=== PATIENT | male | born 1945 | race Caucasian/White ===

== ENCOUNTER 2019-04-03 13:07 | Inpatient (IN) | payer MEDICARE, OTHER ==
[~2019-04-03] VITALS: Ht 180.3 cm; Wt 83.8 kg
[2019-04-03 13:51] LABS: BASOPHILS ABSOLUTE AUTO 0.03 K/mm3 (0.00-0.23); BASOPHILS PERCENT AUTO 0 % (0-2); EOSINOPHILS ABSOLUTE AUTO 0.03 K/mm3 (0.00-0.68); EOSINOPHILS PERCENT AUTO 0 % (0-6); Hematocrit 42.6 % (37.0-53.0); Hemoglobin 14.2 g/dL (13.5-17.5); IMMATURE GRAN ABSOLUTE AUTO 0.04 K/mm3 (0.00-0.10); IMMATURE GRAN PERCENT AUTO 0 % (0-1); LYMPHOCYTES PERCENT AUTO 8 % (21-46); MONOCYTES ABSOLUTE AUTO 0.63 K/mm3 (0.16-1.47); MONOCYTES PERCENT AUTO 6 % (4-13); Mean Corpuscular HGB 30.3 pg (26.0-34.0); Mean Corpuscular HGB Conc 33.3 g/dL (31.5-36.5); Mean Corpuscular Volume 91 fL (80-100); Mean Platelet Volume 9.3 fL (9.1-12.4); NEUTROPHILS ABSOLUTE AUTO 8.65 K/mm3 (1.96-9.15); NEUTROPHILS PERCENT AUTO 85 % (41-73); Platelet Count 202 K/mm3 (150-400); RDW Coefficient Variation 13.1 % (11.7-14.2); RDW Standard Deviation 43.9 fL (35.1-46.3); Red Blood Cell Count 4.69 M/mm3 (4.30-5.90); White Blood Cell Count 10.18 K/mm3 (4.00-11.30)
[2019-04-03 14:13] LABS: Alanine Aminotransfer (ALT/SGP 25 U/L (12-78); Albumin, Blood 3.8 g/dL (3.4-5.0); Albumin/Globulin Ratio 1.2 (0.8-1.8); Alk Phos 71 U/L (50-136); Anion Gap 8 mmol/L (6-16); Aspartate Aminotrans (AST/SGOT 20 U/L (12-37); Bilirubin, Total 0.5 mg/dL (0.1-1.0); Blood Urea Nitrogen 18 mg/dL (8-24); Bun/Creatinine Ratio 18.5 (12.0-20.0); CO2, Blood 23 mmol/L (21-32); Chloride, Blood 108 mmol/L (98-108); Creatinine, Blood 0.97 mg/dL (0.60-1.20); Globulin, Blood 3.1 g/dL (2.2-4.0); Glomerular Filtration Rate >60 (60-); Glucose, Blood 146 mg/dL (70-99); Potassium, Blood 3.9 mmol/L (3.5-5.5); Sodium, Blood 139 mmol/L (136-145); Total Protein, Blood 6.9 g/dL (6.4-8.2)
[2019-04-03 14:27] LABS: Troponin I 0.551 ng/mL (0.000-0.040)
--- NOTE | 2019-04-03 15:43 | NUR ---
I am call to the ED by Justin to come and sit with patient's spouse because patient has coded in rm 12. I arrive in ED and spouse, Jacinta, is in the consult room making phone calls and RN Jovanna is present with her. I walk with patient as she tells me the events of the morning and then the events that occurred in the ED. Jacinta is tearful at times and yet very articulate and focused in telling details and talking with doctors and nurses. 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 I sit with patient providing a calming presence while I listen empathically. I provide prayer when patient codes a second time and again pulls out of it. Jacinta is very relieved. Jacinta kisses her on the way to the Library Circulation Department Chief and I go and retrieve Jacinta's friends from the ED waiting room and bring them to her in the [facility] waiting room. Jacinta thanks me for all the support and assures me that there is nothing more I can do for her at this time. I will continue to remain available to patient and family.
[2019-04-03] MEDS ORDERED: LISI20 PO (16:35)
[2019-04-03] MEDS ORDERED: Aciphex20 MG PO (16:36)
--- NOTE | 2019-04-03 18:00 | NUR ---
PT ADMITTED TO ICU FROM MOLDER HELPER IN BED. SEDATED WITH PROPOFOL, MOVING EXTREMITIES SPONTANEOUSLY, NO RESPONSE TO COMMANDS. PERRL. WRIST RESTRAINTS ON TO PROTECT TUBE. LUNGS CLEAR. ORALLY INTUBATED, VENT SETTING AC 15, TV 450, PEEP 8, 100%. 7.0 AT 25 ATT. LUNGS CLEAR. OGT CLAMPED. ABDOMEN SOFT. CARDIAC-TEMPORARY PACER RIGHT FEMORAL SITE. AGGRASTAT AT 15CC/HR=.147 MCG/KG/MIN VIA LAC SL, INITIAL RHYTHM PACED THEN CHANGED TO WIDE COMPLEX TACHYCARDIA. BOTH DR. BUTTS AND DR. MCQUEEN AT BEDSIDE. ADENOSINE GIVEN-INITIAL 6 MG NO RESPONSE VIA RAC SL. SECOND DOSE 12 MG VIA CORDIS WITH SLOWING RATE THEN QUICKLY BACK TO TACHYCARDIA AT 120'S, REPEATED AND SAME RESULT. DR. MCQUEEN IDENTIFIED RHYTHM SVT. AMIODARONE GTT STARTED AT 1 MG/MIN-NO BOLUS (HAD IN ER) MAINTAINING BP. RIGHT RADIAL TR BAND INTACT WITH 12 CC AIR, RIGHT HAND DUSKY, COOL, SLIGHT SWELLING ABOVE SITE-NO CHANGE FROM REPORT FROM MOLDER HELPER STAFF. UO VIA RODRÍGUEZ ADEQUATE. PEDAL PULSES INTACT.
[2019-04-03 18:48] LABS: BASOPHILS ABSOLUTE AUTO 0.05 K/mm3 (0.00-0.23); BASOPHILS PERCENT AUTO 0 % (0-2); EOSINOPHILS ABSOLUTE AUTO 0.01 K/mm3 (0.00-0.68); EOSINOPHILS PERCENT AUTO 0 % (0-6); Hematocrit 48.5 % (37.0-53.0); Hemoglobin 15.2 g/dL (13.5-17.5); IMMATURE GRAN ABSOLUTE AUTO 0.16 K/mm3 (0.00-0.10); IMMATURE GRAN PERCENT AUTO 1 % (0-1); LYMPHOCYTES ABSOLUTE AUTO 1.55 K/mm3 (0.84-5.20); LYMPHOCYTES PERCENT AUTO 6 % (21-46); MONOCYTES ABSOLUTE AUTO 1.67 K/mm3 (0.16-1.47); MONOCYTES PERCENT AUTO 7 % (4-13); Mean Corpuscular HGB 30.5 pg (26.0-34.0); Mean Corpuscular HGB Conc 31.3 g/dL (31.5-36.5); Mean Platelet Volume 9.3 fL (9.1-12.4); NEUTROPHILS ABSOLUTE AUTO 22.21 K/mm3 (1.96-9.15); NEUTROPHILS PERCENT AUTO 87 % (41-73); Platelet Count 260 K/mm3 (150-400); RDW Coefficient Variation 13.2 % (11.7-14.2); RDW Standard Deviation 47.6 fL (35.1-46.3); Red Blood Cell Count 4.99 M/mm3 (4.30-5.90); White Blood Cell Count 25.65 K/mm3 (4.00-11.30)
[2019-04-03 18:49] LABS: Mean Corpuscular Volume 97 fL (80-100)
--- NOTE | 2019-04-03 19:15 | NUR ---
ASSUMED CARE BEDSIDE REPORT RECIEVED FROM BRONWYN BOSWELL. DR MCQUEEN IN ROOM AT THIS TIME ATTEMPTING TO PLACE RADIAL ART LINE. DR BUTTS IN ROOM WELL. PT IS CURRENTLY ON VENT, AC 16, TV 550, PEEP 8, FIO2 100%. PT WITH TRANSVENOUS PACER IN PLACE TO RIGHT GROIN SET AT 80 BPM, 1.5 MV. PT HR INCREASED BACK TO 130'S WIDE COMPLEX. AMIO GTT RESTARTED AT 1 MG/MIN. AFTER UNSUCCESSFUL RADIAL ART LINE ATTEMPT, DR BUTTS STARTED SET UP FOR LEFT FEMORAL CENTRAL LINE AND ART LINE. SUCCESSFUL PLACEMENT OF ART LINE AND CENTRAL LINE ACHIEVED. SEE VS FLOW SHEET FOR ART LINE BP'S. DOPAMINE AT 20 MCG/MIN. LEVOPHED AT 5 MCG/MIN. PT IS RESTLESS/THRASHING IN BED AT THIS TIME. PROPOFOL RESTARTED AT 40 MCG/KG/MIN. SBW RESTRAINTS IN PLACE. PT WITH TR BAND TO RIGHT RADIAL ACCESS SITE, SEE CATH SITE MANAGEMENT DOCUMENTATION. OGT IN PLACE, CLAMPED. RODRÍGUEZ IN PLACE WITH GOOD AMOUNT OF YELLOW OUTPUT NOTED. FAMILY IN WAITING ROOM AT THIS TIME. WILL CONTINUE TO MONITOR.
--- NOTE | 2019-04-03 19:15 | NUR ---
RHYTHM CHANGE TO CHB, PACED AT RATE 60-HYPOTENSIVE WITH PRESSURE SYSTOLIC 50'S. DR. MCQUEEN REMAINS AT BEDSIDE. INCREASED TEMP PACER RATE TO 80 BPM WITHOUT IMPROVEMENT. NS BOLUS AT 999, DOPAMINE GTT INITIATED AND TITRATED UP TO 20 MCG/KG/MIN, AND THEN LEVOPHED STARTED AND UP TO 5 MCG/MIN. MAP NOW > 60. PROPOFOL OFF FOR HYPOTENSIVE EPISODE, AMIODARONE OFF. PT RESTLESS, AGITATED, RX WITH VERSED AND THEN ATIVAN AND PROPOFOL RESTARTED PER ORDERS. DR. MONTEIRO ATTEMPTING RADIAL [place] ACCESS FOR BP. ETT CUFF WITH AIR LEAK, PCXR DONE-CHANGED TO 27 ATT WITH RESOLUTION OF LEAK. 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 UPDATED AND BACK TO WAITING ROOM. AWAITING LABS. LEFT ARM SKIN TEAR. BLADDER TEMP MONITORED. UNSTABLE TO START COOLING MEASURES.
[2019-04-03 19:16] LABS: Anion Gap 15 mmol/L (6-16); Blood Urea Nitrogen 19 mg/dL (8-24); Bun/Creatinine Ratio 19.5 (12.0-20.0); CO2, Blood 17 mmol/L (21-32); Calcium, Blood 8.8 mg/dL (8.5-10.1); Chloride, Blood 108 mmol/L (98-108); Creatinine, Blood 0.98 mg/dL (0.60-1.20); Glomerular Filtration Rate >60 (60-); Glucose, Blood 226 mg/dL (70-99); Magnesium, Blood 2.2 mg/dL (1.6-2.4); Phosphorus, Blood 3.5 mg/dL (2.5-4.9); Potassium, Blood 3.9 mmol/L (3.5-5.5); Sodium, Blood 140 mmol/L (136-145)
[2019-04-03 20:08] LABS: PCO2 Arterial 39.6 mmHg (35-45); PO2 Arterial 71.4 mmHg (80-100); pH Blood Arterial 7.16 (7.35-7.45)
--- NOTE | 2019-04-03 23:00 | NUR ---
UPDATE PT WITH CONTINUED BREATH STACKING ON VENT. VENT SETTINGS CHANGED TO PC 10, PEEP 12, FIO2 95%. PT TOLERATING VENT WELL AFTER CHANGES. DR BUTTS CALLED AND UPDATED TO CURRENT PT CONDITION. NO NEW ORDERS RECIEVED AT THIS TIME. PT BP HAS STABILIZED WITH SBP 90-110'S, MAP 70-80'S. LEVOPHED AT 20 MCG/MIN. DOPAMINE BEING TITRATED DOWN FIRST PER DR MCQUEEN. HR REMAINS 130'S. PT APPEARS TO BE RESTING QUIETLY AT THIS TIME. FAMILY MEMBERS AND SPOUSE HAVE BEEN IN ROOM AND UPDATED. STATED THEY WILL SPEND THE NIGHT IN THE ICU WAITING ROOM. WILL CONTINUE TO MONITOR.
[2019-04-04 03:50] LABS: BASOPHILS ABSOLUTE AUTO 0.02 K/mm3 (0.00-0.23); BASOPHILS PERCENT AUTO 0 % (0-2); EOSINOPHILS PERCENT AUTO 0 % (0-6); Hematocrit 39.4 % (37.0-53.0); IMMATURE GRAN ABSOLUTE AUTO 0.07 K/mm3 (0.00-0.10); IMMATURE GRAN PERCENT AUTO 0 % (0-1); LYMPHOCYTES PERCENT AUTO 4 % (21-46); MONOCYTES ABSOLUTE AUTO 1.84 K/mm3 (0.16-1.47); MONOCYTES PERCENT AUTO 10 % (4-13); Mean Corpuscular HGB 30.2 pg (26.0-34.0); Mean Corpuscular Volume 92 fL (80-100); Mean Platelet Volume 9.3 fL (9.1-12.4); NEUTROPHILS ABSOLUTE AUTO 15.29 K/mm3 (1.96-9.15); NEUTROPHILS PERCENT AUTO 85 % (41-73); Platelet Count 226 K/mm3 (150-400); RDW Coefficient Variation 13.3 % (11.7-14.2); RDW Standard Deviation 44.7 fL (35.1-46.3); White Blood Cell Count 18.02 K/mm3 (4.00-11.30)
[2019-04-04 04:12] LABS: Alanine Aminotransfer (ALT/SGP 161 U/L (12-78); Albumin/Globulin Ratio 1.2 (0.8-1.8); Alk Phos 60 U/L (50-136); Anion Gap 8 mmol/L (6-16); Aspartate Aminotrans (AST/SGOT 418 U/L (12-37); Bilirubin, Total 0.5 mg/dL (0.1-1.0); Blood Urea Nitrogen 19 mg/dL (8-24); Bun/Creatinine Ratio 15.4 (12.0-20.0); CO2, Blood 22 mmol/L (21-32); Calcium, Blood 8.6 mg/dL (8.5-10.1); Chloride, Blood 106 mmol/L (98-108); Creatinine, Blood 1.23 mg/dL (0.60-1.20); Globulin, Blood 2.5 g/dL (2.2-4.0); Glomerular Filtration Rate >60 (60-); Glucose, Blood 298 mg/dL (70-99); Magnesium, Blood 1.6 mg/dL (1.6-2.4); Phosphorus, Blood 1.2 mg/dL (2.5-4.9); Potassium, Blood 3.7 mmol/L (3.5-5.5); Sodium, Blood 136 mmol/L (136-145); Total Protein, Blood 5.5 g/dL (6.4-8.2)
[2019-04-04 04:43] LABS: PCO2 Arterial 36.6 mmHg (35-45); PO2 Arterial 92.9 mmHg (80-100); pH Blood Arterial 7.37 (7.35-7.45)
--- NOTE | 2019-04-04 05:40 | NUR ---
SHIFT SUMMARY PT HAS REMAINED STABLE THROUGHOUT THE NIGHT. PT HAS TOLERATED THE VENT ON PRESSURE CONTROL OF 10 AND PEEP OF 10 WELL. FIO2 TITRATED DOWN TO 40%. PT HAS REMAINED SEDATED WITH PROPOFOL AT 40 MCG/KG/MIN. PT REMAINS WITH ART LINE AND CENTRAL LINE IN PLACE TO LEFT GROIN. BLEEDING FROM ART LINE SITE HAS SUBSIDED AND NEW DRESSING PLACED. BP HAS REMAINED STABLE WITH LEVOPHED AT 20 MCG/MIN. DOPAMINE HAS BEEN TITRATED DOWN THROUHGOUT THE SHIFT TO 3 MCG/KG/MIN. BICARB INFUSING AT 100 ML/HR, AMIO AT 0.5 MG/MIN, AGGRASTAT AT 15 ML/HR, AND NS TKO. TRANSVENOUS PACER REMAINS IN PLACE TO RIGHT GROIN, SET AT 80 BPM AND 3 MA. PT HR HAS TRENDED DOWN FROM 130'S TO 100'S. OGT REMAINS IN PLACE. RODRÍGUEZ TEMP PROBE REMAINS IN PLACE WITH GOOD URINE OUTPUT THIS SHIFT. SBW RESTRAINTS REMAIN IN PLACE. TR BAND REMOVED AND OPSITE DRESSING IN PLACE TO RIGHT RADIAL SITE. HEMATOMA HAS DISSAPATED AND SITE IS SOFT. PT SPOUSE HAS REMAINED AT BEDSIDE. WILL CONTINUE TO MONITOR AND REPORT OFF TO ONCOMING RN.
--- NOTE | 2019-04-04 07:30 | NUR ---
ASSUMED CARE: REPORT RECEIVED FROM BHASKAR Hernandez, RN & SHERI Kitchen RN. ASSUMED CARE OF THIS PT AT APPROX 0700. ON ASSESSMENT, THE PT IS SEDATED/ INTUBATED & RESTING QUIETLY. PT's IS AT BEDSIDE. VENT SETTINGS: PRESSURE CONTROL 10, PEEP 10, RR 16 & FIO2 35%. O2 SATS > 92%, RESP E/U. MONITOR SHOWS ST W/ HR 110s, BP STABLE W/ LEVOPHED & DOPAMINE TITRATION DOCUMENTED IN FLOWSHEET. AMIO INFUSING AT 0.5 MG/MIN, AGGRASTAT INFUSING AT 15 ML/HR. PROPOFOL FOR SEDATION. OGT CLAMPED. TEMP RODRÍGUEZ PATENT/ DRAINING DARK YELLOW URINE. R RADIAL SITE S/P ANGIOGRAM, TEGADERM DRESSING CDI. MOD AMNT BRUISING NOTED PROXIMAL TO PUNCTURE SITE. WRIST IMMOBILIZER IN PLACE. L RADIAL SITE S/P ATTEMPTED ART LINE PLACEMENT, GAUZE & COBAN TO AFFECTED AREA, CDI. R FEMORAL SITE W/ TV PACER IN PLACE. AREA WNL. TV PACER SETTINGS: VOLTAGE 3, SENSITIVITY 1.5 MV, RATE 80 P/MIN. L FEMORAL SITE W/ ARTERIAL LINE & CENTRAL LINE. AREA WNL. SMALL AMNT SS OOZING NOTED UNDER DRESSING, UNCHANGED PER REPORT. ALL DISTAL LIMBS/ DIGITS W/ STRONG PULSES & CAP REFILL < 3 SECONDS. WILL CONTINUE TO MONITOR & UPDATE NEEDED.
--- NOTE | 2019-04-04 08:05 | NUR ---
DR BOGGS: PROVIDER AT BEDSIDE TO SEE PT. NO CHANGES AT THIS TIME. CONTINUE POC PER LEADER ASSEMBLER & CLOTHING PATTERNMAKER. WILL CONTINUE TO MONITOR & UPDATE NEEDED.
--- NOTE | 2019-04-04 08:10 | NUR ---
DR MCQUEEN ([place]): PROVIDER AT BEDSIDE TO SEE PT. STS TO TITRATE PRESSORS TO KEEP MAP > 60. REQUESTS FOR EKG TO BE COMPLETED & FOR MORNING DOSE OF LIPITOR TO BE GIVEN, THEN FOR MED TO BE RESCHEDULED FOR BEDTIME, OKAY TO GIVE TWO DOSES TODAY. CONTINUE AMIODARONE UNTIL PO ORDERED BY PROVIDER. WILL CONTINUE TO MONITOR & UPDATE NEEDED.
--- NOTE | 2019-04-04 10:54 | NUR ---
AGGRASTAT: INFUSION COMPLETED AT 0800.
--- NOTE | 2019-04-04 11:16 | NUR ---
DR HAGEN: PROVIDER AT BEDSIDE TO SEE PT. SHE STS PT HAS DEVELOPED NEW INFILTRATE NOTED ON CHEST XR THIS AM, THERE IS CONCERN THAT ASPIRATION OCCURED DURING PT's CARDIAC ARREST. SHE WOULD LIKE TO BE NOTIFIED IF THE PT DEVELOPS A FEVER AT WHICH TIME, ABX WILL BE STARTED. SCD's TO BE PLACED ON BILAT CALVES FOR VTE PROPHYLAXIS. OTHERWISE CONTINUE CURRENT POC. WILL CONTINUE TO MONITOR & UPDATE NEEDED.
--- NOTE | 2019-04-04 13:28 | NUR ---
TUBE FEEDING: PER ASSOCIATE TECHNICIAN ORDERS, TF HAS BEEN INITIATED. VITAL HP INFUSING AT 15 ML/HR, OKAY TO ADVANCE TO 35 ML/HR AT APPROX 2130 TONIGHT IF PT TOLERATING WELL. 30 ML H2O FLUSH Q4H. RESIDUAL PRIOR TO TF INITIATION WAS 0 ML. WILL CONTINUE TO MONITOR & UPDATE NEEDED.
[2019-04-04 16:28] LABS: PCO2 Arterial 35.2 mmHg (35-45); PO2 Arterial 105 mmHg (80-100); pH Blood Arterial 7.49 (7.35-7.45)
--- NOTE | 2019-04-04 16:52 | NUR ---
DR HAGEN / UPDATE: PROVIDER UPDATED ON ABG RESULTS. STS TO D/C SODIUM BICARB. ALSO NOTIFIED HER OF PT's INCREASED CORE TEMP TO 99.7. STS SHE WILL PLACE ORDERS FOR ABX. WILL CONTINUE TO MONITOR & UPDATE NEEDED.
--- NOTE | 2019-04-04 17:15 | NUR ---
Patient's spouse, Britton, is bedside. Jennifer Madden tells me about the events since I was with her in the ED yesterday and about how she is holding up. She talks about no sleep for 36 hrs, about the large amount of family flying and driving from several parts of the [place] and about some of the interesting family unit complications. We talk about healthy margins, self-care and being in this for the long haul. I listen empathically and provide pastoral counselling psychologist and prayer. Jennifer Madden responds well and tells me she is going to lie down on the couch and try to get alittle rest before a big family dinner this night at 1900. I will continue to be available to patient and family.
--- NOTE | 2019-04-04 17:46 | NUR ---
SHIFT SUMMARY: NO ACUTE CHANGES SINCE PRIOR UPDATES. PT REMAINS SEDATED/ INTUBATED. BILAT SOFT WRIST RESTRAINTS IN PLACE TO PREVENT SELF-EXTUBATION. PT WITHDRAWING ALL EXTREMITIES TO PAINFUL STIMULI, MOVING BLE MORE THAN BUE. TMAX 99.7, DR HAGEN HAS STARTED IV ABX. LS ARE DIM IN BASES, VENT SETTINGS: PRESSURE CONTROL 10, PEEP 5, FIO2 35% & RR 16. PT TOLERATING WELL W/ RESP E/U, O2 SATS > 92%. MONITOR SHOWS ST W/ BBB, HR 100-110s. BP STABLE W/ LEVOPHED TITRATED PER FLOWSHEET. GOAL OF MAP > 60. HYPOACTIVE BT x4. PT TOLERATING TF WELL W/ NO RESIDUAL NOTED. RODRÍGUEZ DRAINING YELLOW URINE W/ SMALL AMNT SEDIMENT NOTED. DR HAGEN AWARE OF PT's LARGE AMNT OF URINE OUTPUT THIS SHIFT & HAS ORDERED POTASSIUM LEVEL TO BE CHECKED. BUE SITES WNL, WRIST IMMOBILIZER TO R SIDE, COBAN REMOVED FROM L SIDE. BLE SITES WNL, ALL LINES PATENT & DRESSINGS CDI. SEE WOUND DOCUMENTATION OR PRIOR NOTE FOR MORE DETAIL REGARDING THESE SITES. WILL CONTINUE TO MONITOR & REPORT OFF TO ONCOMING RN.
--- NOTE | 2019-04-04 19:00 | NUR ---
ASSUMED CARE ASSUMED CARE OF PATIENT. REMAINS INTUBATED- AC 16, PC 10, PEEP 5, FIO2 35%. RESP RATE 16-17. SEDATED WITH PROPOFOL @ 40MCG/KG/MIN. MOVES ALL EXTREMITIES WEAKLY AND WITHDRAWS FROM STIMILU. NOT FOLLOWING ANY COMMANDS AT THIS TIME. BILATERAL SOFT WRIST RESTRAINTS IN PLACE TO PREVENT SELF-EXTUBATION. RIGHT PUPIL 3MM, BRISK. LEFT PUPIL 2MM, BRISK. MONITOR SHOWS ST WITH BBB, RATE 100s. LEVOPHED INFUSING @ 14MCG/MIN TO KEEP MAP >60. AMIODARONE INFUSING @ 0.5MG/MIN. TRANSVENOUS PACER IN PLACE TO RIGHT FEMORAL (RATE SET AT 80). LEFT FEMORAL ARTERIAL LINE AND CENTRAL LINE NOTED. RIGHT RADIAL SITE WITH BRUISING NOTED- ARM BOARD IN PLACE. TEMP 99.5F PER RODRÍGUEZ TEMP PROBE. OG WITH VITAL HIGH PROTEIN INFUSING @ 15CC/HR (GOAL 55CC/HR). RODRÍGUEZ PATENT WITH YELLOW URINE. PAS TO BLE. SEE SHIFT ASSESSMENT FOR FULL ASSESSMENT.
[2019-04-05 04:24] LABS: BASOPHILS ABSOLUTE AUTO 0.03 K/mm3 (0.00-0.23); BASOPHILS PERCENT AUTO 0 % (0-2); EOSINOPHILS PERCENT AUTO 0 % (0-6); Hematocrit 33.9 % (37.0-53.0); Hemoglobin 11.6 g/dL (13.5-17.5); IMMATURE GRAN ABSOLUTE AUTO 0.07 K/mm3 (0.00-0.10); IMMATURE GRAN PERCENT AUTO 1 % (0-1); LYMPHOCYTES ABSOLUTE AUTO 0.88 K/mm3 (0.84-5.20); LYMPHOCYTES PERCENT AUTO 6 % (21-46); MONOCYTES ABSOLUTE AUTO 1.32 K/mm3 (0.16-1.47); MONOCYTES PERCENT AUTO 9 % (4-13); Mean Corpuscular HGB Conc 34.2 g/dL (31.5-36.5); Mean Platelet Volume 9.8 fL (9.1-12.4); NEUTROPHILS ABSOLUTE AUTO 11.86 K/mm3 (1.96-9.15); NEUTROPHILS PERCENT AUTO 84 % (41-73); Platelet Count 175 K/mm3 (150-400); RDW Coefficient Variation 13.6 % (11.7-14.2); RDW Standard Deviation 43.5 fL (35.1-46.3); Red Blood Cell Count 3.87 M/mm3 (4.30-5.90); White Blood Cell Count 14.16 K/mm3 (4.00-11.30)
[2019-04-05 04:25] LABS: Mean Corpuscular Volume 88 fL (80-100)
--- NOTE | 2019-04-05 04:35 | NUR ---
SEDATION VACATION/SBT PROPOFOL TITRATED DOWN AND OFF AT THIS TIME FOR WEANING TRIAL. RT AT BEDSIDE.
[2019-04-05 04:47] LABS: Anion Gap 6 mmol/L (6-16); Blood Urea Nitrogen 17 mg/dL (8-24); Bun/Creatinine Ratio 16.7 (12.0-20.0); CO2, Blood 26 mmol/L (21-32); Calcium, Blood 7.8 mg/dL (8.5-10.1); Chloride, Blood 106 mmol/L (98-108); Creatinine, Blood 1.02 mg/dL (0.60-1.20); Glomerular Filtration Rate >60 (60-); Glucose, Blood 221 mg/dL (70-99); Magnesium, Blood 1.7 mg/dL (1.6-2.4); Phosphorus, Blood 2.5 mg/dL (2.5-4.9); Potassium, Blood 3.8 mmol/L (3.5-5.5); Sodium, Blood 138 mmol/L (136-145)
[2019-04-05 05:12] LABS: PCO2 Arterial 29.6 mmHg (35-45); PO2 Arterial 73.3 mmHg (80-100); pH Blood Arterial 7.57 (7.35-7.45)
--- NOTE | 2019-04-05 05:15 | NUR ---
SBT/SEDATION SBT COMPLETE AT THIS TIME- SEE RT DOCUMENTATION. PROPOFOL RESTARTED AT 20MCG/KG/MIN. AT BEDSIDE.
--- NOTE | 2019-04-05 06:16 | NUR ---
SHIFT SUMMARY NO ACUTE CHANGES. REMAINS INTUBATED- AC 16, PC 10, PEEP 5, FIO2 30%. RR 16-20s. SEDATED WITH PROPOFOL BETWEEN 20-40MCG/KG/MIN- NOW @ 20MCG/KG/MIN. PROPOFOL OFF AT 0430 FOR WEANING TRIAL. PT WAS ABLE TO OPEN EYES TO AND FOLLOW SOME SIMPLE COMMANDS. PROPOFOL RESTARTED AT 20MCG/KG/MIN AT 0515. MOVES ALL EXTREMITIES. MONITOR SHOWS ST WITH BBB, RATE 100-115. LEVOPHED INFUSED BETWEEN 10-16MCG/MIN TO MAINTAIN MAP >60. NOW INFUSING AT 10MCG/MIN. AMIODARONE INFUSING @ 0.5MG/MIN PER ORDER. OG WITH VITAL HIGH PROTEIN AT GOAL RATE OF 55CC/HR. OG RESIDUALS <10CC WITH EACH CHECK. RODRÍGUEZ PATENT AND DRAINING TO GRAVITY. PAS TO BLE. LEFT FEMORAL A-LINE PATENT, ZEROED. LEFT FEMORAL CENTRAL LINE NOTED. TRANSVENOUS REMAINS IN PLACE TO RIGHT FEMORAL- PT HAS NOT BEEN PACED T/O SHIFT. RUE WITH ARM BOARD IN PLACE. MEDICATED WITH FENTANYL 50MCG IV X 1 DOSE FOR FACIAL GRIMACING AND RESTLESSNESS. AT BEDSIDE. WILL REPORT TO DAY SHIFT RN WHEN AVAILABLE.
--- NOTE | 2019-04-05 07:45 | NUR ---
ASSUMED CARE / DR BOGGS: REPORT RECEIVED FROM KAREN Allen RN. ASSUMED CARE OF THIS PT AT APPROX 0700. ON ASSESSMENT, THE PT IS RESTING QUIETLY. HE REMAINS INTUBATED & SEDATED W/ PROPOFOL. VENT SETTINGS: PRESSURE CONTROL 10, PEEP 5, FIO2 30%, RR 16. MONITOR SHOWS ST W/ BBB, HR 100s. BP STABLE W/ LEVOPHED DRIP TITRATED IN FLOWSHEET. BT x4, TF INFUSING AT GOAL RATE OF 35 ML/HR W/ NO RESIDUALS PER REPORT. TEMP RODRÍGUEZ PATENT/ DRAINING. BILAT FEMORAL & RADIAL SITES ARE WNL, DRESSINGS ALL CDI. PROVIDER AT BEDSIDE TO SEE PT. CONTINUE POC, NO CHANGES AT THIS TIME. WILL CONTINUE TO MONITOR & UPDATE NEEDED.
--- NOTE | 2019-04-05 08:25 | NUR ---
DR MCQUEEN ([place]): PROVIDER AT BEDSIDE TO SEE PT. STS HE WOULD LIKE AMIO D/C'd & WILL BE STARTING PO AMIO W/ GOAL OF REDUCING DOSE SO THAT IF THE PT IS GOING TO EXPERIENCE ANY VENTRICULAR ARRHYTHMIA, IT WILL BE KNOWN PRIOR TO DISCHARGE. TV PACER SETTINGS HAVE BEEN CHANGED TO RATE OF 40 P/MIN. PROVIDER HAS REMOVED ARM BOARD TO PT's R WRIST. HE WOULD LIKE TO REMOVE THE PACER IN APPROX 3 HRS & WOULD LIKE F/U TROPONIN LEVEL TO BE DRAWN IN 6 HRS. WILL CONTINUE TO MONITOR & UPDATE NEEDED.
--- NOTE | 2019-04-05 10:40 | NUR ---
DR HAGEN: CONCERN FOR POSSIBLE TUBE FEED ASPIRATION HAS BEEN DISCUSSED. WHEN SUCTIONING PT's MOUTH, THIS RN HAS SUCTIONED A MOD AMNT OF ROSSI FLUID. TUBE FEED STOPPED AT THAT TIME & PROPER OGT PLACEMENT ON THIS AM's CXR HAS BEEN VERIFIED W/ PROVIDER. PER PT's , HE HAS AN EXTENSIVE HX OF BRONCHITIS & SOME SINUS ISSUES ALSO. CXR WAS COMPLETED PRIOR TO THIS INSTANCE & DOES SHOW WORSENING INFILTRATES. PROVIDER BELIEVES THAT IT IS LIKELY SINUS DRAINAGE BEING SUCTIONED AT BACK OF MOUTH/ UPPER AIRWAY. STS OKAY TO RESUMED TUBE FEEDS AT THIS TIME & MONITOR CLOSELY. PROVIDER HAS ALSO SPOKEN W/ PT's FAMILY AT BEDSIDE. THEY DENY QUESTIONS. WILL CONTINUE TO MONITOR & UPDATE NEEDED.
--- NOTE | 2019-04-05 12:00 | NUR ---
TRANSVENOUS PACER REMOVAL: DR MCQUEEN AT BEDSIDE TO REMOVE TV PACER TO R GROIN. CORDIS HAS BEEN REMOVED BY PROVIDER & THIS RN REMOVED VENOUS SHEATH. MANUAL PRESSURE HELD TO SITE FOR APPROX 5 MINS BY THIS RN. NO BLEEDING OR FURTHER BRUISING TO SITE IS NOTED. TEGADERM HAS BEEN PLACED TO COVER PUNCTURE SITE. WILL CONTINUE TO MONITOR & UPDATE NEEDED.
--- NOTE | 2019-04-05 13:51 | NUR ---
Stat echocardiogram completed under Dr. Wiley's supervision.
--- NOTE | 2019-04-05 13:59 | NUR ---
UPDATE: AT APPROX 1225 PT HAD RHYTHM/ RATE CHANGE. EKG COMPLETED & SHOWS AFIB W/ RVR, HR 130-140s. PT PREVIOUSLY IN SINUS TACH W/ HR 100s. DR MCQUEEN CONTACTED BY JC BROOKS RN. HE ARRIVED AT BEDSIDE. STAT ECHO COMPLETED SHOWS NO CHANGES FROM PRIOR ECHO. DIGOXIN GIVEN PER EMAR. IV AMIO TO BE RESTARTED, BOLUS INFUSING NOW. DR MCQUEEN FEELS THAT THIS IS LIKLEY INFECTION RELATED & HAS ASKED THIS RN TO NOTIFY DR HAGEN OF THESE CHANGES. STAT LAB DRAWS ARE NOW DONE & DR HAGEN IS AWARE OF CHANGES TO PT CONDITION. WILL CONTINUE TO MONITOR & UPDATE NEEDED.
[2019-04-05 14:30] LABS: BASOPHILS ABSOLUTE AUTO 0.02 K/mm3 (0.00-0.23); BASOPHILS PERCENT AUTO 0 % (0-2); EOSINOPHILS ABSOLUTE AUTO 0.01 K/mm3 (0.00-0.68); EOSINOPHILS PERCENT AUTO 0 % (0-6); Hematocrit 32.5 % (37.0-53.0); IMMATURE GRAN ABSOLUTE AUTO 0.07 K/mm3 (0.00-0.10); IMMATURE GRAN PERCENT AUTO 1 % (0-1); LYMPHOCYTES PERCENT AUTO 8 % (21-46); MONOCYTES ABSOLUTE AUTO 1.09 K/mm3 (0.16-1.47); MONOCYTES PERCENT AUTO 8 % (4-13); Mean Corpuscular HGB 30.2 pg (26.0-34.0); Mean Corpuscular HGB Conc 33.8 g/dL (31.5-36.5); Mean Corpuscular Volume 89 fL (80-100); Mean Platelet Volume 10.2 fL (9.1-12.4); NEUTROPHILS ABSOLUTE AUTO 11.67 K/mm3 (1.96-9.15); NEUTROPHILS PERCENT AUTO 84 % (41-73); Platelet Count 177 K/mm3 (150-400); RDW Coefficient Variation 13.7 % (11.7-14.2); RDW Standard Deviation 45.1 fL (35.1-46.3); Red Blood Cell Count 3.64 M/mm3 (4.30-5.90); White Blood Cell Count 13.96 K/mm3 (4.00-11.30)
[2019-04-05 14:57] LABS: Alanine Aminotransfer (ALT/SGP 107 U/L (12-78); Albumin, Blood 2.5 g/dL (3.4-5.0); Albumin/Globulin Ratio 0.9 (0.8-1.8); Alk Phos 55 U/L (50-136); Anion Gap 7 mmol/L (6-16); Aspartate Aminotrans (AST/SGOT 171 U/L (12-37); Bilirubin, Total 0.9 mg/dL (0.1-1.0); Blood Urea Nitrogen 18 mg/dL (8-24); Bun/Creatinine Ratio 17.6 (12.0-20.0); CO2, Blood 24 mmol/L (21-32); Calcium, Blood 7.5 mg/dL (8.5-10.1); Chloride, Blood 102 mmol/L (98-108); Creatinine, Blood 1.02 mg/dL (0.60-1.20); Globulin, Blood 2.7 g/dL (2.2-4.0); Glomerular Filtration Rate >60 (60-); Glucose, Blood 284 mg/dL (70-99); Magnesium, Blood 2.2 mg/dL (1.6-2.4); Potassium, Blood 3.7 mmol/L (3.5-5.5); Sodium, Blood 133 mmol/L (136-145); Total Protein, Blood 5.2 g/dL (6.4-8.2)
[2019-04-05 14:58] LABS: Source, Urine Catheter
[2019-04-05 15:02] LABS: Bilirubin, Urine Neg (Neg); Blood, Urine 2+ (Neg); Glucose Qualitative, Urine 3+ (Neg); Ketones, Urine Neg (Neg); Leukocyte Esterase, Urine 1+ (Neg); Nitrite, Urine Neg (Neg); Protein, Urine 2+ (Neg); Specific Gravity, Urine 1.025 (1.003-1.022); Urobilinogen, Urine NORM (Normal)
[2019-04-05 15:10] LABS: Appearance, Urine Clear (Clear); Color, Urine Yellow (P-Yellow)
[2019-04-05 15:11] LABS: Bacteria Few /hpf; Squamous Epithelial Cells Few /hpf (Few)
--- NOTE | 2019-04-05 17:56 | NUR ---
SHIFT SUMMARY: NO ACUTE CHANGES SINCE PRIOR UPDATES. PT REMAINS IN AFIB, HAVING UNSUSTAINED PERIODS OF SINUS RHYTHM. DURING THESE TIMES, PT's SBP PER ART LINE READING INCREASES TO 120-130s. ON RETURNING TO AFIB, PT's SBP BACK DOWN TO 80-90s. AMIO CONTINUES INFUSING. LEVOPHED TITRATION DOCUMENTED IN FLOWSHEET. VENT SETTINGS UNCHANGED SINCE THIS AM, O2 SATS > 92%. RODRÍGUEZ PATENT/ DRAINING. TEMP CHARTED. BILAT RADIAL & FEMORAL SITES WNL. R FEMORAL SITE REMAINS FREE OF BLEEDING, BRUISING OR HEMATOMA FORMATION FOLLOWING TV PACER REMOVAL. WILL CONTINUE TO MONITOR & REPORT OFF TO ONCOMING RN.
--- NOTE | 2019-04-05 19:00 | NUR ---
ASSUMED CARE ASSUMED CARE OF PATIENT. REMAINS INTUBATED- AC 16, PC 10, PEEP 5, FIO2 30%. RESP RATE 16-23. SEDATED WITH PROPOFOL @ 30MCG/KG/MIN. MOVES ALL EXTREMITIES SPONTANEOUSLY. NOT FOLLOWING COMMANDS. ATTEMPTS TO OPEN EYES WITH STIMULI. BILATERAL SOFT WRIST RESTRAINTS IN PLACE. MONITOR SHOW AFIB WITH BBB, RATE 100-120s. AMIODARONE INFUSING @ 1MG/MIN- WILL DECREASE TO 0.5MG/MIN AFTER SIX HOURS. LEVOPHED INFUSING @ 11MCG/MIN TO KEEP MAP >60. OG WITH VITAL HIGH PROTEIN AT GOAL RATE OF 55CC/HR. RODRÍGUEZ PATENT AND DRAINING DARK YELLOW URINE. PAS TO BLE. LEFT FEMORAL A-LINE AND CENTRAL LINE NOTED. SEE SHIFT ASSESSMENT FOR FULL ASSESSMENT.
--- NOTE | 2019-04-06 04:00 | NUR ---
NSR MONITOR SHOWS CONVERSION FROM AFIB WITH BBB TO NSR WITH BBB, RATE 80.
[2019-04-06 04:29] LABS: BASOPHILS ABSOLUTE AUTO 0.04 K/mm3 (0.00-0.23); BASOPHILS PERCENT AUTO 0 % (0-2); EOSINOPHILS ABSOLUTE AUTO 0.03 K/mm3 (0.00-0.68); EOSINOPHILS PERCENT AUTO 0 % (0-6); Hematocrit 31.7 % (37.0-53.0); Hemoglobin 10.5 g/dL (13.5-17.5); IMMATURE GRAN ABSOLUTE AUTO 0.04 K/mm3 (0.00-0.10); IMMATURE GRAN PERCENT AUTO 0 % (0-1); LYMPHOCYTES ABSOLUTE AUTO 1.06 K/mm3 (0.84-5.20); LYMPHOCYTES PERCENT AUTO 10 % (21-46); MONOCYTES ABSOLUTE AUTO 0.94 K/mm3 (0.16-1.47); MONOCYTES PERCENT AUTO 9 % (4-13); Mean Corpuscular HGB Conc 33.1 g/dL (31.5-36.5); Mean Corpuscular Volume 91 fL (80-100); Mean Platelet Volume 9.9 fL (9.1-12.4); NEUTROPHILS ABSOLUTE AUTO 8.38 K/mm3 (1.96-9.15); NEUTROPHILS PERCENT AUTO 80 % (41-73); Platelet Count 153 K/mm3 (150-400); RDW Standard Deviation 45.5 fL (35.1-46.3); White Blood Cell Count 10.49 K/mm3 (4.00-11.30)
--- NOTE | 2019-04-06 04:49 | NUR ---
SEDATION VACATION PROPOFOL TITRATED DOWN AND OFF FOR SPONTANEOUS BREATHING TRIAL.
[2019-04-06 04:55] LABS: Magnesium, Blood 2.1 mg/dL (1.6-2.4)
[2019-04-06 04:57] LABS: Anion Gap 6 mmol/L (6-16); Blood Urea Nitrogen 18 mg/dL (8-24); Bun/Creatinine Ratio 16.1 (12.0-20.0); CO2, Blood 26 mmol/L (21-32); Calcium, Blood 7.6 mg/dL (8.5-10.1); Chloride, Blood 105 mmol/L (98-108); Creatinine, Blood 1.12 mg/dL (0.60-1.20); Glomerular Filtration Rate >60 (60-); Glucose, Blood 197 mg/dL (70-99); Phosphorus, Blood 2.2 mg/dL (2.5-4.9); Potassium, Blood 3.7 mmol/L (3.5-5.5); Sodium, Blood 137 mmol/L (136-145)
[2019-04-06 06:07] LABS: Base Excess Venous 3.6 mmol/L; Bicarbonate Venous 28.2 mmol/L (24.0-30.0); PO2 Venous 71.6 mmHg (38-42)
--- NOTE | 2019-04-06 06:30 | NUR ---
SHIFT SUMMARY NO ACUTE CHANGES. REMAINS INTUBATED- AC 16, PC 10, PEEP 5, FIO2 30%. RR 16-24. SEDATED WITH PROPOFOL BETWEEN 10-30MCG/KG/MIN- NOW INFUSING AT 30MCG/KG/MIN. MOVES ALL EXTREMITIES. NOT FOLLOWING COMMANDS. BILATERAL SOFT WRIST RESTRAINTS REMAIN IN PLACE. SPONTANEOUS BREATHING TRIAL COMPLET WITH SEDATION OFF FOR APPROXIMATELY 45 MINUTES- SEE RT DOCUMENTATION. TUBE FEEDING AT GOAL RATE OF 55CC/HR. RESIDUAL CHECKS <10CC. RODRÍGUEZ PATENT AND DRAINING TO GRAVITY. LEVOPHED INFUSED BETWEEN 3-11MCG/MIN TO MAINTAIN MAP >60. NOW INFUSING @ 3MCG/MIN. AMIODARONE @ 0.5MG/MIN PER ORDER. PT CONVERTED TO NSR WITH BBB AT 0400. AT BEDSIDE. WILL REPORT TO DAY SHIFT RN WHEN AVAILABLE.
--- NOTE | 2019-04-06 07:44 | NUR ---
ASSUMED CARE: REPORT RECEIVED FROM KAREN Allen RN. ASSUMED CARE OF THIS PT AT APPROX 0700. ON ASSESSMENT, THE PT REMAINS SEDATED W/ PROPOFOL & INTUBATED. HE IS RESTING QUIETLY W/ NO S/SX PAIN OR DISCOMFORT. VENT SETTINGS UNCHANGED, AC 16, PC 10, PEEP 5 & FIO2 30%. O2 SATS > 92%, RESP E/U. MONITOR SHOWS SR W/ BBB, HR 70s. ARTERIAL BP STABLE W/ LEVOPHED TITRATED IN FLOWSHEET. PT CONVERTED FROM AFIB TO SR AT APPROX 0400 PER REPORT. TEMP RODRÍGUEZ PATENT/ DRAINING. TF INFUSING AT GOAL RATE OF 55 ML/HR. PT TOLERATING WELL W/ NO RESIDUALS NOTED, BT x4. WILL CONTINUE TO MONITOR & UPDATE NEEDED.
--- NOTE | 2019-04-06 08:02 | NUR ---
DR BOGGS: PROVIDER HAS BEEN AT BEDSIDE TO SEE PT. UPDATED HIM ON PT's STATUS. NO CHANGES AT THIS TIME. WILL CONTINUE TO MONITOR & UPDATE NEEDED.
--- NOTE | 2019-04-06 09:42 | NUR ---
SEDATION VACATION: PROPOFOL PLACED ON STANDBY AT APPROX 0905. DURING THIS TIME, PT HAS EYES OPEN & TURNS HIS HEAD TOWARDS VERBAL STIMULUS. HE IS NOT FOLLOWING DIRECTION OR ANSWERING YES/ NO QUESTIONS W/ HEAD NODS. HE MAEW & DOES SEEM SOMEWHAT PURPOSEFUL IN REACHING FOR THE ETT & ATTEMPTED TO PUSH THE ETT OUT OF HIS MOUTH W/ HIS TONGUE & LIPS. SEDATION RESUMED AT APPROX 0940 PT IS VISIBLY UNCOMFORTABLY, SHIFTING AROUND IN BED W/ LEGS DRAWN UP. WILL CONTINUE TO MONITOR & UPDATE NEEDED.
--- NOTE | 2019-04-06 10:19 | NUR ---
DR HAGEN / UPDATE: PROVIDER HAS REQUESTED THAT TUBE FEEDS & PROPOFOL BE PLACED ON STANDBY IN ATTEMPT TO WAKE PT & EVAL FOR POSSIBLE EXTUBATION THIS AM. TF & PROPOFOL PLACED ON STANDBY AT 1010. WILL CONTINUE TO MONITOR & UPDATE NEEDED.
--- NOTE | 2019-04-06 10:41 | NUR ---
SPONTANEOUS BREATHING TRIAL: PT TOLERATING SBT WELL W/ RR 20-30 & TV > 450. SETTINGS ARE PS 8/5 & 30% FIO2. DR HAGEN AT BEDSIDE & PT IS MORE ALERT NOW, FOLLOWING SOME COMMANDS, MOVING EXTREMITIES & SQUEEZING W/ BOTH HANDS. PLAN IS TO REMOVE ARTERIAL LINE PRIOR TO EXTUBATION. PRIOR PC VENT SETTINGS & SEDATION HAVE BEEN RESUMED. TUBE FEEDS REMAIN ON HOLD.
--- NOTE | 2019-04-06 12:06 | NUR ---
ARTERIAL LINE REMOVAL: ART LINE TO L FEMORAL ARTERY HAS BEEN REMOVED AT 1230 & MANUAL PRESSURE HELD BY THIS RN FOR APPROX 20 MINS. PRIOR TO REMOVAL, AREA WAS CLEANSED THOROUGHLY W/ CHLORHEXIDINE & SUTURES REMOVED. CENTRAL LINE ALSO TO L GROIN TO REMAIN IN PLACE. AFTER HOLDING MANUAL PRESURE, THERE IS NO SIGN OF BLEEDING. NEW TEGADERM CHG DRESSING IS PLACED OVER CENTRAL LINE & ALSO COVERING PUNCTURE SITE FROM ARTERIAL LINE. AREA REMAINS FREE OF BLEEDING, BRUISING OR HEMATOMA FORMATION AT THIS TIME. WILL CONTINUE TO MONITOR & UPDATE NEEDED.
--- NOTE | 2019-04-06 13:43 | NUR ---
WEAN TRIAL: SEDATION HAS BEEN TURNED OFF, PT MOSTLY AWAKE. EYES OPEN BUT STILL DROWSY & NOT FOLLOWING COMMANDS AT THIS TIME. VENT HAS BEEN CHANGED TO SPONTANEOUS MODE W/ PRESSURE SUPPORT 5/5 & 30% FIO2. PT TOLERATING WELL ADEQUATE TIDAL VOLUMES & RR.
--- NOTE | 2019-04-06 15:09 | NUR ---
EXTUBATION: DR HAGEN AT BEDSIDE. PT's ETT NOW HAS LARGE AUDIBLE CUFF LEAK & ON EXAMINATION APPEARS TO HAVE MIGRATED OUT OF PLACE. ETT WAS 27 CM AT LIP THIS AM, IS NOW APPROX 25.5 CM AT LIP. RT MIRIAN, CALLED TO BEDSIDE. PLAN FOR EXTUBATION TO OCCUR NOW. PT IS SUCTIONED THROUGH ETT & ORALLY W/ YANKAUR. CUFF DEFLATED, ETT & OGT REMOVED AT 1445. PT TOLERATED EXTUBATION WELL & IS PLACED ON 3L NC W/ O2 SATS > 92%, RESP E/U. WILL CONTINUE TO MONITOR & UPDATE NEEDED.
--- NOTE | 2019-04-06 19:00 | NUR ---
ASSUMED CARE ASSUMED CARE OF PATIENT. AWAKE AND ALERT. APPEARS ORIENTED TO FAMILY. FOLLOWS SIMPLE COMMANDS. ATTEMPTS TO TALK, BUT SPEECH IS INCOMPREHENSIBLE. MOVES ALL EXTREMITIES WELL. THROWS LEGS OVER SIDE OF BED. YANG VEST IN PLACE. PULLING AT RODRÍGUEZ CATHETER AND NASAL CANNULA. MONITOR SHOWS SR WITH BBB, RATE 80s. LEVOPHED @ 2MCG/MIN- WILL TITRATE DOWN/OFF TOLERATED. AMIODARONE CONTINUES @ 0.5MCG/MIN. RODRÍGUEZ PATENT AND DRAINING YELLOW URINE. LEFT FEMORAL CENTRAL LINE NOTED. PAS TO BLE. AT BEDSIDE. SEE SHIFT ASSESSMENT FOR FULL ASSESSMENT.
--- NOTE | 2019-04-06 19:17 | NUR ---
SHIFT SUMMARY: NO ACUTE CHANGES SINCE PRIOR UPDATES. PT REMAINS SOMEWHAT CONFUSED, HE IS REDIRECTABLE BUT HAS BEEN NONVERBAL SINCE EXTUBATION. YANG VEST IN PLACE PT IS CONTINUOUSLY ATTEMPTING TO CLIMB OOB BETWEEN VERBAL REDIRECTIONS. LS REMAIN DIM IN BASES, PT ON 3L NC MOST OF THE AFTERNOON, TITRATED UP TO 8L FOR DESATS WHEN PT HAS REMOVED HIS NC. MONITOR SHOWS SR W/ BBB, HR 70s. BP STABLE W/ LEVOPHED TITRATED IN FLOWSHEET. PT TO BE STRICT NPO UNTIL SPEECH THERAPY EVAL, PER DR HAGEN. BILAT FEMORAL & RADIAL SITES WNL. WILL CONTINUE TO MONITOR & REPORT OFF TO ONCOMING RN.
--- NOTE | 2019-04-06 19:45 | NUR ---
RESTRAINTS PT ATTEMPTING TO CLIMB OUT OF BED AND CONTINUES TO PULL OFF O2 AND PULL ON CENTRAL LINE AND RODRÍGUEZ. BILATERAL UPPER AND LOWER EXTREMITIES APPLIED AT THIS TIME.
--- NOTE | 2019-04-06 20:30 | NUR ---
DOBHOFF STRICT NPO CONTINUES UNTIL SWALLOW EVAL DONE. DISCUSSED ROUTE OF PO MEDICATION ADMINISTRATION WITH DR. HAGEN. ORDER RECEIVED TO PLACE DOBHOFF. DOBHOFF PLACED WITHOUT DIFFICULTY.
[2019-04-07 03:28] LABS: BASOPHILS ABSOLUTE AUTO 0.01 K/mm3 (0.00-0.23); BASOPHILS PERCENT AUTO 0 % (0-2); EOSINOPHILS PERCENT AUTO 0 % (0-6); Hematocrit 31.4 % (37.0-53.0); Hemoglobin 10.3 g/dL (13.5-17.5); IMMATURE GRAN ABSOLUTE AUTO 0.04 K/mm3 (0.00-0.10); IMMATURE GRAN PERCENT AUTO 0 % (0-1); LYMPHOCYTES ABSOLUTE AUTO 0.65 K/mm3 (0.84-5.20); LYMPHOCYTES PERCENT AUTO 6 % (21-46); MONOCYTES ABSOLUTE AUTO 0.83 K/mm3 (0.16-1.47); MONOCYTES PERCENT AUTO 8 % (4-13); Mean Corpuscular HGB 29.9 pg (26.0-34.0); Mean Corpuscular HGB Conc 32.8 g/dL (31.5-36.5); Mean Corpuscular Volume 91 fL (80-100); Mean Platelet Volume 10.1 fL (9.1-12.4); NEUTROPHILS ABSOLUTE AUTO 8.73 K/mm3 (1.96-9.15); NEUTROPHILS PERCENT AUTO 85 % (41-73); Platelet Count 151 K/mm3 (150-400); RDW Coefficient Variation 14.2 % (11.7-14.2); RDW Standard Deviation 47.2 fL (35.1-46.3); Red Blood Cell Count 3.45 M/mm3 (4.30-5.90); White Blood Cell Count 10.26 K/mm3 (4.00-11.30)
[2019-04-07 03:43] LABS: Anion Gap 9 mmol/L (6-16); Blood Urea Nitrogen 21 mg/dL (8-24); Bun/Creatinine Ratio 19.4 (12.0-20.0); CO2, Blood 26 mmol/L (21-32); Calcium, Blood 7.8 mg/dL (8.5-10.1); Chloride, Blood 105 mmol/L (98-108); Creatinine, Blood 1.08 mg/dL (0.60-1.20); Glomerular Filtration Rate >60 (60-); Glucose, Blood 133 mg/dL (70-99); Phosphorus, Blood 2.9 mg/dL (2.5-4.9); Potassium, Blood 3.8 mmol/L (3.5-5.5); Sodium, Blood 140 mmol/L (136-145)
[2019-04-07 04:44] LABS: PCO2 Arterial 29.6 mmHg (35-45); PO2 Arterial 54.7 mmHg (80-100); pH Blood Arterial 7.54 (7.35-7.45)
--- NOTE | 2019-04-07 06:17 | NUR ---
SHIFT SUMMARY NO ACUTE CHANGES. SLEPT VERY LITTLE DURING NOC. CONTINUES TO BE ORIENTED TO SELF, FAMILY, AND FOLLOWING DIRECTIONS. PT IS AWARE THAT HE IS IN THE HOSPITAL. DISORIENTED TO DATE/TIME. YANG VEST AND BILATERAL UPPER AND LOWER SOFT RESTRAINTS REMAIN ON. ATTEMPTED TO REMOVE RESTRAINTS, BUT PT ATTEMPTS TO CLIMB OUT OF BED AND REACHES FOR DOBHOFF. SPEECH IS GARBLED, BUT SEEMS MORE CLEAR THIS AM. MOVES ALL EXTREMITIES. MEDICATED WITH FENTANYL 50MCG IV X 1 DURING NOC FOR C/O PAIN. LEVOPHED HAS BEEN OFF SINCE 193. BP IS STABLE. MONITOR SHOWS NSR WITH BBB. AMIODARONE CONTINUES @ 0.5MCG/MIN PER ORDER. DOBHOFF CLAMPED. RODRÍGUEZ PATENT AND DRAINING DARK YELLOW URINE. OCCASIONAL PRODUCTION OF THICK TANNISH-YELLOW SPUTUM. ONE EPISODE OF BLOOD TINGED SPUTUM THIS AM. REMAINS ON 6LNC. TACHYPNEA NOTED WITH EXERTION. AT BEDSIDE. WILL REPORT TO DAY SHIFT RN WHEN AVAILABLE.
--- NOTE | 2019-04-07 07:15 | NUR ---
BEGINNING OF SHIFT Assumed care at 0700. Bedside report received from Yasmine BARNHART. A&O x 2. Repeatedly requests to "go for a walk". Pt in vest restraint and soft restraints to BUE and BLE. Pt's spouse at bedside. Pt on 6 LPM NC. Sinus rhythm with BBB per monitor. Levophed off. Amiodarone 0.5 mg/min. Pt has productive cough with moderate amounts of thick, brown sputum. Strict NPO. Clamped dobhoff in place for medication administration. Bed in lowest position. Call light in reach.
--- NOTE | 2019-04-07 09:00 | NUR ---
UPDATE Titrated down to 5 LPM. SpO2 96%. Pt's spouse left bedside and states she will return around 1400. Pt able to roll side to side in bed. Pt not able to sit self up in bed. Vest restraint and soft restraints to BLE removed. Pt again asks to "go for a walk". This RN discussed pt's strength. Pt agrees that he should not go for a walk right now. Pt able to state correct name, date of , location ([facility]/[place]), and correct year. Pt states he is in hospital due to a heart attack.
--- NOTE | 2019-04-07 13:00 | NUR ---
UPDATE Pt on room air. SpO2 90% or greater. Pt converted into A-fib. Rate 85-95. Dr Olivarez in to see pt. Discussed A-fib. Plan to keep pt on amiodarone drip until he is able to take pills PO. Discussed home meds and a-fib anticoagulation. Cardiology states plan to add PT meds tomorrow. Cardiology states pt is okay to work with PT and OT. Bedbath complete. Pt sitting up in chair. Excited to work with physical therapy.
--- NOTE | 2019-04-07 15:54 | NUR ---
PT PLACED BACK ON O2 Pt in bed, sleeping. Awakens to verbal stimulus, but lethargic after working with occupational therapy. SpO2 83-84%. Pt placed back on 2 LPM NC, but required titration up to 6 LPM on oxymizer to obtain SpO2 90% or greater. Will continue to reassess.
[2019-04-07 16:54] LABS: Vancomycin, Trough 6.7 ug/mL (5.0-10.0)
--- NOTE | 2019-04-07 18:13 | NUR ---
SUMMARY At this time, pt on 4 LPM via oxymizer. SpO2 90% or greater. Pt completely out of restraints since 1300. Pt has not pulled on any cords or lines, nor has he attempted to get OOB. Pt calls for staff appropriately. Pt A&O x 3. Pt has spontaneously converted between sinus rhythm and atrial fibrillation with controlled rate several times throughout shift. BP has remained stable without levophed. Powerglide inserted so central line can be removed. Will be removed when additional peripheral access is obtained. Will continue to closely monitor until care handoff and bedside report with oncoming RN.
[2019-04-08 03:50] LABS: Anion Gap 7 mmol/L (6-16); Blood Urea Nitrogen 27 mg/dL (8-24); Bun/Creatinine Ratio 24.1 (12.0-20.0); CO2, Blood 27 mmol/L (21-32); Calcium, Blood 7.6 mg/dL (8.5-10.1); Chloride, Blood 107 mmol/L (98-108); Creatinine, Blood 1.12 mg/dL (0.60-1.20); Glomerular Filtration Rate >60 (60-); Glucose, Blood 117 mg/dL (70-99); Potassium, Blood 3.3 mmol/L (3.5-5.5); Sodium, Blood 141 mmol/L (136-145)
--- NOTE | 2019-04-08 06:24 | NUR ---
SHIFT SUMMARY PT MAINTAINED VITALS OFF PRESSORS THRU NIGHT. PT EXPERIENCED ICNREASED SOB, INCREASED NC02 BY 1L, UP TO 3L NC WHILE SLEEPING. NO C/O PAIN. MAINTAINED IN NSR THRU NIGHTT. NPO STATUS MAINTAINED. LOTS OF SPUTUM PRODUCED. WILL CONTINUE TO MONITOR.
--- NOTE | 2019-04-08 07:30 | NUR ---
DR PITTMAN IN TO SEE PT Plan of care discussed. Provider gives orders to start metoprolol today. This RN will call provider to notify if pt passes speech eval and can start PO, so PO amiodarone can be started. Provider states pt should be appropriate to transfer to PCU today.
--- NOTE | 2019-04-08 09:47 | NUR ---
CALL PLACED TO DR PITTMAN Lisinopril ordered by Dr Nova. This RN asked Dr Pittman if this is okay to give to patient, since metoprolol was started today. Discussed current BP and HR with provider. Provider also notified that pt has converted into atrial fibrillation this morning. Provider stated that metoprolol should be started today and lisinopril will be started tomorrow.
--- NOTE | 2019-04-08 09:49 | NUR ---
ST IN TO SEE PT Unable to see at this time, as pt has to lay flat until 1000. Central line removed from left femoral vein at 0930.
--- NOTE | 2019-04-08 10:26 | NUR ---
ST IN TO SEE PT Pt sitting upright in chair. Currently on room air. SpO2 94%.
--- NOTE | 2019-04-08 11:55 | NUR ---
CALL PLACED TO DR PITTMAN Notified provider that pt is now able to take PO. Amiodarone changed to PO. Orders given to stop IV amiodarone at 1800. All other meds to be changed to PO, as dobhoff has been removed.
--- NOTE | 2019-04-08 15:00 | NUR ---
UPDATE Pt up to chair for lunch. Tolerated meal well. No coughing, choking, or gagging noted. Pt tolerates pills in applesauce well.
[2019-04-08 18:20] LABS: Vancomycin, Trough 13.7 ug/mL (5.0-10.0)
--- NOTE | 2019-04-08 18:26 | NUR ---
SUMMARY Pt has been A&O x 4 for entire shift. Pt has been in good spirits this shift, wanting to talk and visit with family. Pt on room air while awake and mobilizing. Requires up to 6 LPM with oxymizer to maintain SpO2 90% or greater while asleep. This RN assisted pt OOB with FWW and gait belt to recliner prior to working with ST. Pt placed back in bed after lunch. Tolerates activity well, requiring verbal cues and minimal physical assistance. Pt OOB again to work with physical therapy. Incentive spirometer and flutter valve at bedside. Pt using these devices independently. Correct usage discussed and demonstrated by pt. Gaines catheter, central line, and dobhoff removed this shift. Sputum culture sent. Will continue to closely monitor until care handoff and bedside report with oncoming RN.
--- NOTE | 2019-04-08 20:29 | NUR ---
ASSUMED CARE RECEIVED REPORT FROM BRONWYN MERAZ. PT IS ALERT AND ORIENTED X 4 AND IN GOOD SPIRITS. HE IS WEAK/DECONDITIONED. DENIES DISCOMFORT/SOB AT THIS TIME. BED IS LOW AND LOCKED. CALL LIGHT WITHIN REACH.
[2019-04-09 03:41] LABS: Hematocrit 30.2 % (37.0-53.0); Hemoglobin 9.8 g/dL (13.5-17.5); Mean Corpuscular HGB 30.5 pg (26.0-34.0); Mean Corpuscular HGB Conc 32.5 g/dL (31.5-36.5); Platelet Count 177 K/mm3 (150-400); RDW Coefficient Variation 14.1 % (11.7-14.2); RDW Standard Deviation 47.8 fL (35.1-46.3); Red Blood Cell Count 3.21 M/mm3 (4.30-5.90); White Blood Cell Count 8.62 K/mm3 (4.00-11.30)
[2019-04-09 03:42] LABS: Mean Corpuscular Volume 94 fL (80-100)
[2019-04-09 03:56] LABS: Anion Gap 6 mmol/L (6-16); Blood Urea Nitrogen 29 mg/dL (8-24); Bun/Creatinine Ratio 25.9 (12.0-20.0); CO2, Blood 27 mmol/L (21-32); Calcium, Blood 7.7 mg/dL (8.5-10.1); Chloride, Blood 111 mmol/L (98-108); Creatinine, Blood 1.12 mg/dL (0.60-1.20); Glomerular Filtration Rate >60 (60-); Glucose, Blood 112 mg/dL (70-99); Magnesium, Blood 2.6 mg/dL (1.6-2.4); Potassium, Blood 3.2 mmol/L (3.5-5.5); Sodium, Blood 144 mmol/L (136-145)
--- NOTE | 2019-04-09 07:31 | NUR ---
SHIFT SUMMARY PT IS ALERT AND ORIENTED X 4, AND SLEPT INTERMITTANTLY THROUGHOUT NIGHT. INFUSING GTTP: NS TKO FOR ZOSYN AND VANCOMYCIN. PT IS IN SINUS RHYTHM, NO RUNS OF AFIB LAST NIGHT, RATE IN THE 70'S. STABLE BP'S. PT IS ON 2L VIA OXYMIZER. SAT'ING HIGH 90'S. PT SWALLOWS WELL WHEN SITTING UPRIGHT, AND TUCKING CHIN TO CHEST. PT IS WEAK, DECONDITIONED, BUT MOVES ALL EXTREMETIES.HE IS HIGHLY MOTIVATED TO WORK WITH PT AND OT, AND TO DO HIS BREATHING EXERCISES. HE HAS BLOOD TINGED SPUTUM WHEN HE SPITS, BUT STATES HE IS SPITTING LESS AND LESS BLOOD TIME GOES ON. STATES HE FEELS BETTER ABOUT HIS BREATHING AND THAT HE DOESN'T FEEL THE NEED TO COUGH MUCH. BED IS LOW AND LOCKED. CALL LIGHT WITHIN REACH.
--- NOTE | 2019-04-09 08:00 | NUR ---
BEGINNING OF SHIFT Assumed care of pt at 0700 from Marylin BARNHART. Pt on 6 LPM via oxymizer at beginning of shift. O2 removed. SpO2 94%. Pt ambulated around ICU west with walker, gait belt, and no assistance other than verbal cues. Pt then sat up in recliner and is eating breakfast at this time. Pt states his will come visit in early afternoon, when she is done with orthodoxy. Dr Nova in to see pt. States pt is okay to transfer to PCU. Notified provider that pt is PCU status.
--- NOTE | 2019-04-09 09:08 | NUR ---
DR PITTMAN AND DR VALLADARES IN TO SEE PT Dr Pittman notified that pt recevied metoprolol tartrate instead of succinate yesterday as pills had to be crushed. Provider aware. Will give metoprolol succinate today. Discussed starting lisinopril today. Discussed anticoagulation for atrial fibrillation; provider states that she will have Dr Martinez make this decision tomorrow. Dr Valladares in to see pt. Pt on room air. Provider states pulmonology/ginseng farmer to sign off on care. Discussed pt's need for oxygen while sleeping. Orders given for sleep oximetry tonight.
--- NOTE | 2019-04-09 11:20 | NUR ---
UPDATE Offered pt to ambulate around unit again. Pt declined. Pt states he wants to take a shower when his arrives and he will go for a walk afterwards if he still has energy.
--- NOTE | 2019-04-09 17:34 | NUR ---
SUMMARY Pt is currently medical floor status. Pt well over 500 feet today. Pt also took a shower. Pt tolerated activities well. He is not oriented to his own limitations and attempts to do more than is physically safe. Pt is A&O x 4. Confused at times, this afternoon. Pt on room air for entire shift. No events per monitor. Pt tolerating puree diet well. Coughing and amount of sputum produced has significantly decreased. Bed in lowest position. Call light in reach. Pt's spouse at bedside. Will continue to closely monitor until care handoff and bedside report with oncoming RN.
--- NOTE | 2019-04-09 18:46 | NUR ---
UPDATE Pt sat up in bed, triggering bed alarm. Pt states he heard voices stating intent to kill him and his . Pt pulled out IV. Pt reoriented. Recognized this RN. Pt led to recliner. Reclined and provided with warm blankets. Pt sleeping at this time. Call placed to Giana gordon. Zosyn infusion time changed to run over one hour instead of four. Will continue vancomycin when zosyn is complete.
--- NOTE | 2019-04-09 20:00 | NUR ---
ASSUME CARE REPORT RECIEVED FROM OFF GOING RN KT. MONITOR INTACT SHOWING SINUS RHYTHM WITH BBB. HEART RATE 70'S, LUNG SOUNDS WITH AUDIBLE WHEEZE CLEARS WITH COUGHT. UP IN CHAIR DOZING TAB ALARM ON. CONFUSED ATTEMPTS TO GET OUT OF CHAIR. EASILY REDIRECTABLE. ASSIST TO BED. COOPERATIVE TO CARES "I THOUGHT IT WAS MORNING.". ABDOMEN SOFT WITH BOWEL SOUNDS FOUR QUADS. GAIT STEADY WITH VERBAL CUES AND MINIMAL STANDBY ASSIST/ TOLERATES PO MEDS AND PUDDING WELL CONTINUE TO MONITOR AND REPORT CHANGE IN PATIENT CONDITION
[2019-04-10 04:30] LABS: BASOPHILS ABSOLUTE AUTO 0.02 K/mm3 (0.00-0.23); BASOPHILS PERCENT AUTO 0 % (0-2); EOSINOPHILS ABSOLUTE AUTO 0.15 K/mm3 (0.00-0.68); EOSINOPHILS PERCENT AUTO 2 % (0-6); Hematocrit 32.3 % (37.0-53.0); Hemoglobin 10.4 g/dL (13.5-17.5); IMMATURE GRAN PERCENT AUTO 1 % (0-1); LYMPHOCYTES ABSOLUTE AUTO 1.07 K/mm3 (0.84-5.20); LYMPHOCYTES PERCENT AUTO 13 % (21-46); MONOCYTES ABSOLUTE AUTO 1.12 K/mm3 (0.16-1.47); MONOCYTES PERCENT AUTO 13 % (4-13); Mean Corpuscular HGB 30.1 pg (26.0-34.0); Mean Corpuscular HGB Conc 32.2 g/dL (31.5-36.5); Mean Corpuscular Volume 94 fL (80-100); Mean Platelet Volume 9.7 fL (9.1-12.4); NEUTROPHILS ABSOLUTE AUTO 6.01 K/mm3 (1.96-9.15); NEUTROPHILS PERCENT AUTO 71 % (41-73); Platelet Count 240 K/mm3 (150-400); RDW Coefficient Variation 14.5 % (11.7-14.2); RDW Standard Deviation 48.8 fL (35.1-46.3); Red Blood Cell Count 3.45 M/mm3 (4.30-5.90); White Blood Cell Count 8.47 K/mm3 (4.00-11.30)
[2019-04-10 04:50] LABS: Albumin, Blood 2.8 g/dL (3.4-5.0); Anion Gap 7 mmol/L (6-16); Blood Urea Nitrogen 30 mg/dL (8-24); Bun/Creatinine Ratio 25.4 (12.0-20.0); CO2, Blood 26 mmol/L (21-32); Calcium, Blood 7.8 mg/dL (8.5-10.1); Chloride, Blood 111 mmol/L (98-108); Creatinine, Blood 1.18 mg/dL (0.60-1.20); Glomerular Filtration Rate >60 (60-); Glucose, Blood 110 mg/dL (70-99); Phosphorus, Blood 2.4 mg/dL (2.5-4.9); Potassium, Blood 3.2 mmol/L (3.5-5.5); Sodium, Blood 144 mmol/L (136-145)
--- NOTE | 2019-04-10 06:47 | NUR ---
SHIFT SUMMARY; AWAKE CONFUSED. THINKING VARIOUS PEOPLE ARE HIS NOTIFIED BY PHONE AT 0430. STATED WILL BE COMING IN AT 0600. INFORMED PT OF SAME. CONTINUES TO ATTEMPT TO GET OOB BED ALARM ON. MONITOR INTACT SHOWING SINUS RHYTHM WITH BBB. HEART RATE 70'S. LUNG SOUNDS CLEAR UPPER LOBES WITH OCC PRODUCTIVE COUGHT OF BROWN RUST COLORED SPUTUM EXPECTORATED. ABDOMEN SOFT WITH BOWEL SOUNDS FOUR QUADS. VOIDS LAUREN URINE PER URINAL. REDIRECTABLE . PLEASENT. CONTINUE TO MONITOR AND REPORT CHANGE IN PATIENT CONDITION.
--- NOTE | 2019-04-10 07:45 | NUR ---
ASSUMED CARE REPORT FROM BRONWYN ROSS. PATIENT WANTS TO GET OOB, GO FOR A WALK, SPEND AN HOUR OUTSIDE. HE IS A&O X3. ASSISTED OOB TO RECLINER. TAPIOCA PUDDING GIVEN FOR SNACK.
--- NOTE | 2019-04-10 11:20 | NUR ---
MD VISIT DR. LYNN IN
--- NOTE | 2019-04-10 14:21 | NUR ---
MD VISIT DR. MCQUEEN IN
--- NOTE | 2019-04-10 14:53 | NUR ---
DR. MCQUEEN CALLED. WANTS PATIENT TO HAVE LIFE VEST WHEN HE IS DISCHARGED. CALLED SAROJ AT [facility] TO START PROCESS. MONSERRAT FROM [facility] CALLED TO SAY HE WOULD BE HERE TOMORROW MORNING TO SEE THE PATIENT
--- NOTE | 2019-04-10 15:34 | NUR ---
REPORT GIVEN. PATIENT MOVED TO [facility] IN W/C BY BERNADETTE AGUDELO.
--- NOTE | 2019-04-10 15:46 | NUR ---
PT TX FROM ICU 12 TO ROOM 341- WHEELCHAIR, ACCOMPANY. AMBULATES SBA TO BED, STEADY ON FEET. VERBAL AND APPROPRIATE, MILDLY FORGETFUL. ORIENTED TO ROOM SET UP AND SAFETY. CALL LIGHT IN REACH, SET BED ALARM. TOLERATING WATER. VSS, AFIBRILE RESP EVEN UNLABORED ON ROOM AIR. LUNGS CLEAR. NEURO INTACT, WITH MILD FORGETFULNESS.
[2019-04-10 17:30] LABS: Vancomycin, Trough 16.3 ug/mL (5.0-10.0)
--- NOTE | 2019-04-10 19:19 | NUR ---
SUMMARY- PT A/O TO SELF AND PLACE AND CIRSUMSTANCE. DECREASED STM, IMPATIENT AND ATTEMPTED TO GET OOB ONCE RN CAUGHT HIS LEGS FROM FALLING TO THE FLOOR. CLOSE OBSERVATION. PT USED CALL LIGHT FREQ AND IS IMPATIENT FOR RESPONSE. MILD CONFUSION AND STATES THINGS LIKE- "THOSE ARE SURE CUTE KIDS" WHEN THERE ARE NO KIDS AROUND. PT BEING MOVED TO ROOM 352 FOR BETTER VISUALIZATION TO KEEP PT SAFE. PT TOLERATED FOOD AND FLUIDS AND USES URINAL TO VOID. RN AMBULATED PT DOWN THE [place]ALTON AROUND 125 FEET, SLOW, GOOD STRENGTH, OCC MIS-STEP. TOLERATED ACTIVITY WELL. CALLED TO NOTIFY PT OF ROOM CHANGE.
--- NOTE | 2019-04-11 04:33 | NUR ---
SHIFT SUMMARY: PT IS ALERT AND ORIENTED WITH MILD TO MODERATE CONFUSION. PT IS INTERMITTENTLY ANXIOUS ABOUT BEING HERE, WANTS TO GO HOME. PT SET HIS BED ALARM OFF ON SEVERAL OCCASIONS, STANDBY ASSIST WITH FWW DURING AMBULATION. PT USES HIS CALL LIGHT APPROPRIATELY AT TIMES. PT IS VISIBLY SOB UPON EXERTION. PT DENIES PAIN, NAUSEA, AND VOMITING. SATS > 90% ON ROOM AIR. NO ACUTE CHANGES OR COMPLICATIONS. WILL REPORT TO DAY NURSE.
[2019-04-11 05:44] LABS: BASOPHILS ABSOLUTE AUTO 0.03 K/mm3 (0.00-0.23); BASOPHILS PERCENT AUTO 0 % (0-2); EOSINOPHILS ABSOLUTE AUTO 0.29 K/mm3 (0.00-0.68); EOSINOPHILS PERCENT AUTO 4 % (0-6); Hematocrit 32.4 % (37.0-53.0); Hemoglobin 10.3 g/dL (13.5-17.5); IMMATURE GRAN ABSOLUTE AUTO 0.09 K/mm3 (0.00-0.10); IMMATURE GRAN PERCENT AUTO 1 % (0-1); LYMPHOCYTES ABSOLUTE AUTO 1.01 K/mm3 (0.84-5.20); LYMPHOCYTES PERCENT AUTO 13 % (21-46); MONOCYTES ABSOLUTE AUTO 0.96 K/mm3 (0.16-1.47); MONOCYTES PERCENT AUTO 13 % (4-13); Mean Corpuscular HGB 29.7 pg (26.0-34.0); Mean Corpuscular HGB Conc 31.8 g/dL (31.5-36.5); Mean Corpuscular Volume 93 fL (80-100); Mean Platelet Volume 9.7 fL (9.1-12.4); NEUTROPHILS PERCENT AUTO 69 % (41-73); Platelet Count 266 K/mm3 (150-400); RDW Coefficient Variation 14.9 % (11.7-14.2); RDW Standard Deviation 49.5 fL (35.1-46.3); Red Blood Cell Count 3.47 M/mm3 (4.30-5.90); White Blood Cell Count 7.68 K/mm3 (4.00-11.30)
[2019-04-11 06:05] LABS: Albumin, Blood 2.8 g/dL (3.4-5.0); Anion Gap 7 mmol/L (6-16); Blood Urea Nitrogen 24 mg/dL (8-24); Bun/Creatinine Ratio 20.9 (12.0-20.0); CO2, Blood 24 mmol/L (21-32); Calcium, Blood 7.9 mg/dL (8.5-10.1); Chloride, Blood 113 mmol/L (98-108); Creatinine, Blood 1.15 mg/dL (0.60-1.20); Glomerular Filtration Rate >60 (60-); Glucose, Blood 110 mg/dL (70-99); Phosphorus, Blood 3.3 mg/dL (2.5-4.9); Potassium, Blood 3.4 mmol/L (3.5-5.5); Sodium, Blood 144 mmol/L (136-145)
--- NOTE | 2019-04-11 08:48 | NUR ---
Echocardiogram completed.
--- NOTE | 2019-04-11 17:34 | NUR ---
SHIFT SUMMARY PATIENT MEDICATED X 1 FOR PAIN TODAY AND X 1 FOR AGITATION. ATIVAN GIVEN FOR INCREASING AGITATION WAS NOT HELPFUL IN DECREASING AGITATION. PATIENT BECAME MORE CONFUSED AND CONTINUED TO CLIMB OUT OF BED AND PULL AT LINES. HOSPITALIST CALLED AND ORDERS FOR YANG GIVEN. PATIENT UP ONE ASSIST W/ GAIT BELT. PATIENT WORKED WITH PT TODAY. PATIENT FITTED FOR LIFE VEST THIS AFTERNOON. PATIENT TO DISCHARGE HOME WITH HOME HEALTH TOMORROW. CALL LIGHT IN REACH.
--- NOTE | 2019-04-12 00:38 | NUR ---
PATIENT UNABLE TO SAFELY TAKE PO MEDICATIONS DUE TO CONFUSION AND SOMNOLENCE. TRIED TO BITE AT RN WHEN WE TRIED TO TOUCH FACE WITH COOL WASHCLOTH. UNABLE TO WAKE ENOUGH TO TAKE VERY SMALL BIT OF APPLESAUCE FROM INSIDE LIPS. MOUTH WIPED CLEAN. COMFORT AND CIRC CHECKS COMPLETES. YANG VEST AND LIFE VEST CHECKED. BRIEF CHECKED. VITAL SIGNS STABLE
--- NOTE | 2019-04-12 03:51 | NUR ---
SHIFT SUMMARY PATIENT VERY SOMNOLENT START OF SHIFT. UNABLE TO WAKE TO SAFELY ADMINISTER MEDICATIONS. TELE: SINUS WITH BBB 80'S. AT 0140, PATIENT WAS ABLE TO WAKE UP WITH GENTLE STIMULATION AND VOICE AND HAS BECOME INCREASINGLY ORIENTED TO SITUATION AND SURROUNDINGS SINCE. STILL CURIOUS ABOUT HAPPENINGS SURROUNDING HIS HOSPITALIZAION AND DESPIRATELY WANTS TO SPEAK WITH . NO COMPLAINTS OF PAIN. LUNG SOUNDS DIM IN DEPENDENT BASES BUT CLEAR WITHOUT COMPLAINTS OF SOB. ABLE TO TAKE ELIQUIS AND LIPITOR CRUSHED IN APPLESAUCE AT 0155.
[2019-04-12 05:11] LABS: BASOPHILS ABSOLUTE AUTO 0.03 K/mm3 (0.00-0.23); BASOPHILS PERCENT AUTO 0 % (0-2); EOSINOPHILS ABSOLUTE AUTO 0.39 K/mm3 (0.00-0.68); EOSINOPHILS PERCENT AUTO 6 % (0-6); Hemoglobin 10.6 g/dL (13.5-17.5); IMMATURE GRAN ABSOLUTE AUTO 0.09 K/mm3 (0.00-0.10); IMMATURE GRAN PERCENT AUTO 1 % (0-1); LYMPHOCYTES ABSOLUTE AUTO 1.03 K/mm3 (0.84-5.20); LYMPHOCYTES PERCENT AUTO 15 % (21-46); MONOCYTES ABSOLUTE AUTO 0.67 K/mm3 (0.16-1.47); MONOCYTES PERCENT AUTO 10 % (4-13); Mean Corpuscular HGB Conc 31.2 g/dL (31.5-36.5); Mean Platelet Volume 9.5 fL (9.1-12.4); NEUTROPHILS ABSOLUTE AUTO 4.68 K/mm3 (1.96-9.15); NEUTROPHILS PERCENT AUTO 68 % (41-73); Platelet Count 294 K/mm3 (150-400); RDW Coefficient Variation 14.9 % (11.7-14.2); RDW Standard Deviation 51.4 fL (35.1-46.3); Red Blood Cell Count 3.53 M/mm3 (4.30-5.90); White Blood Cell Count 6.89 K/mm3 (4.00-11.30)
[2019-04-12 05:25] LABS: Mean Corpuscular Volume 96 fL (80-100)
[2019-04-12 05:37] LABS: Magnesium, Blood 2.4 mg/dL (1.6-2.4)
[2019-04-12 05:39] LABS: Albumin, Blood 2.8 g/dL (3.4-5.0); Anion Gap 7 mmol/L (6-16); Blood Urea Nitrogen 22 mg/dL (8-24); CO2, Blood 24 mmol/L (21-32); Calcium, Blood 8.1 mg/dL (8.5-10.1); Chloride, Blood 113 mmol/L (98-108); Glomerular Filtration Rate >60 (60-); Glucose, Blood 119 mg/dL (70-99); Phosphorus, Blood 2.5 mg/dL (2.5-4.9); Potassium, Blood 3.6 mmol/L (3.5-5.5); Sodium, Blood 144 mmol/L (136-145)
[2019-04-12] MEDS ORDERED: Augmentin 875-1 EACH PO (12:22)
[2019-04-12] MEDS ORDERED: Pacerone400 MG PO (12:22)
[2019-04-12] MEDS ORDERED: ASPI81CH PO (12:23)
[2019-04-12] MEDS ORDERED: ELIQUIS5 MG PO (12:23)
[2019-04-12] MEDS ORDERED: ATOR40TA PO (12:24)
[2019-04-12] MEDS ORDERED: Flonase 0.05% N16 GM (12:25)
[2019-04-12] MEDS ORDERED: CLOP75 PO (12:25)
[2019-04-12] MEDS ORDERED: Culturelle1 CAP PO (12:26)
[2019-04-12] MEDS ORDERED: MELATONIN5 M1 PO (12:27)
[2019-04-12] MEDS ORDERED: METO50ER PO (12:27)
[2019-04-12] MEDS ORDERED: QUET25 PO (12:28)
[2019-04-12] MEDS ORDERED: NITR.4SL SL (12:28)
--- NOTE | 2019-04-12 14:47 | NUR ---
DISCHARGE DISCHARGE MEDICATIONS AND INSTRUCTIONS EXPLAINED TO PATIENT AND PATIENT'S . THEY STATED UNDERSTANDING. FOLLOW UP APPOINTMENTS SCHEDULED WITH CARDIOLOGY AND PCP. LIFE VEST FITTING AND EDUCATION GIVEN YESTERDAY BY [facility] RN. IV REMOVED WITHOUT DIFFICULTY. PATIENT WILL DISCHARGE WITH HOME HEALTH. PATIENT TRANSFERED TO PRIVATE VEHICLE VIA WHEELCHAIR.
--- NOTE | 2019-04-12 16:22 | NUR ---
Asked to speak with family about advance care planning and future care. They were requesting information prior to discharge. Reviw of polst advance directive, arias and power of banbury operator. Careful review of decision maker. Pt was making statements of fear for future so theraputic discussion. fatigued so we briefly discussed cargiver stress. presented them with loving choice book on decision making. Siggested they review AD with their children. Gave them links on [facility] site on life plans. Suggested they review prognosis with primary doctor or population health coach and have them assist with POLST. Offered them appointment to come in and allow us to assist with filling our AD or as a resource to seek support. Pt hisgh risk for readmit will follow up.
== END 2019-04-12 14:25 | disposition home health service (06) | DRG 246 ==
LOC: ER 13:07 → ICUW 13:08 → MEDS 04-10 15:33 → ENPENDDIS 04-12 11:35 → MEDS 04-12 14:25
PROVIDERS: Internal Medicine; Internal Medicine Critical Care Medicine; Pharmacist; Physician Assistant; ADMIT Internal Medicine Interventional Cardiology
PROC: 4A023N7 Measurement of Cardiac Sampling and Pressure, Left Heart, Percutaneous Approach (ICD-10-PCS; principal; 2019-04-03)
PROC: 027034Z Dilation of Coronary Artery, One Artery with Drug-eluting Intraluminal Device, Percutaneous Approach (ICD-10-PCS; 2019-04-03)
PROC: B210YZZ Fluoroscopy of Single Coronary Artery using Other Contrast (ICD-10-PCS; 2019-04-03)
PROC: 5A1945Z Respiratory Ventilation, 24-96 Consecutive Hours (ICD-10-PCS; 2019-04-03)
PROC: 0BH17EZ Insertion of Endotracheal Airway into Trachea, Via Natural or Artificial Opening (ICD-10-PCS; 2019-04-03)
DX: I21.02 ST elevation (STEMI) myocardial infarction involving left anterior descending coronary artery (principal); J96.01 Acute respiratory failure with hypoxia; I46.9 Cardiac arrest, cause unspecified; R57.0 Cardiogenic shock; J69.0 Pneumonitis due to inhalation of food and vomit; A41.9 Sepsis, unspecified organism; I50.21 Acute systolic (congestive) heart failure; I44.2 Atrioventricular block, complete; G93.1 Anoxic brain damage, not elsewhere classified; I48.20 Chronic atrial fibrillation, unspecified; E87.2 Acidosis; K21.9 Gastro-esophageal reflux disease without esophagitis; J44.9 Chronic obstructive pulmonary disease, unspecified; R00.0 Tachycardia, unspecified; J01.90 Acute sinusitis, unspecified; E83.39 Other disorders of phosphorus metabolism; I11.0 Hypertensive heart disease with heart failure; R26.9 Unspecified abnormalities of gait and mobility; I48.0 Paroxysmal atrial fibrillation
CPT/HCPCS: 31500; 31720; 33210; 36415; 36556; 36600; 36620; 51702; 71045; 71046; 76937; 80048; 80053; 80069; 80202; 81001; 82330; 82803; 82947; 83605; 83690; 83735; 83880; 84100; 84132; 84484; 85025; 85027; 85347; 87040; 87070; 87086; 87205; 92526; 92610; 92941; 92950; 93005; 93010; 93306; 93308; 93458; 94002; 94003; 94762; 96374-59; 96375-59; 97110; 97116; 97162; 97167; 97530; 99285-25; C1725; C1751; C1753; C1757; C1769; C1874; C1887; C1894; C9113; J0153; J0282; J1160; J1265; J1644; J1650; J1815; J1940; J2060; J2250; J2543; J2704; J3010; J3246; J3370; J3475; J3480; J7030; J7040; J7050; J7060; J7070; Q9967

== ENCOUNTER 2019-04-29 14:59 | Emergency (ER) | payer MEDICARE, OTHER ==
[~2019-04-29] VITALS: Ht 182.9 cm; Wt 79.4 kg
[~2019-04-29 14:59] MED LIST: ASPI81CH PO; ATOR40TA PO; Aciphex20 MG PO; Augmentin 875-1 EACH PO; CLOP75 PO; Culturelle1 CAP PO; ELIQUIS5 MG PO; Flonase 0.05% N16 GM; LISI20 PO; MELATONIN5 M1 PO; METO50ER PO; NITR.4SL SL; Pacerone400 MG PO; QUET25 PO
[2019-04-29 15:53] LABS: BASOPHILS ABSOLUTE AUTO 0.03 K/mm3 (0.00-0.23); BASOPHILS PERCENT AUTO 1 % (0-2); EOSINOPHILS ABSOLUTE AUTO 0.16 K/mm3 (0.00-0.68); EOSINOPHILS PERCENT AUTO 3 % (0-6); Hematocrit 44.7 % (37.0-53.0); Hemoglobin 13.9 g/dL (13.5-17.5); IMMATURE GRAN ABSOLUTE AUTO 0.02 K/mm3 (0.00-0.10); IMMATURE GRAN PERCENT AUTO 0 % (0-1); LYMPHOCYTES ABSOLUTE AUTO 1.06 K/mm3 (0.84-5.20); LYMPHOCYTES PERCENT AUTO 21 % (21-46); MONOCYTES ABSOLUTE AUTO 0.75 K/mm3 (0.16-1.47); MONOCYTES PERCENT AUTO 15 % (4-13); Mean Corpuscular HGB 30.1 pg (26.0-34.0); Mean Corpuscular HGB Conc 31.1 g/dL (31.5-36.5); Mean Corpuscular Volume 97 fL (80-100); Mean Platelet Volume 9.8 fL (9.1-12.4); NEUTROPHILS PERCENT AUTO 61 % (41-73); Platelet Count 211 K/mm3 (150-400); RDW Coefficient Variation 15.2 % (11.7-14.2); RDW Standard Deviation 54.7 fL (35.1-46.3); Red Blood Cell Count 4.62 M/mm3 (4.30-5.90); White Blood Cell Count 5.12 K/mm3 (4.00-11.30)
[2019-04-29 16:17] LABS: Alanine Aminotransfer (ALT/SGP 32 U/L (12-78); Albumin, Blood 3.9 g/dL (3.4-5.0); Albumin/Globulin Ratio 1.1 (0.8-1.8); Alk Phos 138 U/L (50-136); Anion Gap 6 mmol/L (6-16); Aspartate Aminotrans (AST/SGOT 24 U/L (12-37); Bilirubin, Total 0.7 mg/dL (0.1-1.0); Blood Urea Nitrogen 16 mg/dL (8-24); Bun/Creatinine Ratio 12.7 (12.0-20.0); CO2, Blood 26 mmol/L (21-32); Calcium, Blood 8.9 mg/dL (8.5-10.1); Chloride, Blood 107 mmol/L (98-108); Creatinine, Blood 1.26 mg/dL (0.60-1.20); Globulin, Blood 3.7 g/dL (2.2-4.0); Glomerular Filtration Rate 59 (60-); Glucose, Blood 125 mg/dL (70-99); Potassium, Blood 4.2 mmol/L (3.5-5.5); Sodium, Blood 139 mmol/L (136-145); Total Protein, Blood 7.6 g/dL (6.4-8.2); Troponin I <0.015 ng/mL (0.000-0.040)
== END 2019-04-29 16:55 | disposition home or self-care (01) ==
LOC: ER 14:59
PROVIDERS: Physician Assistant
DX: S16.1XXA Strain of muscle, fascia and tendon at neck level, initial encounter (principal); M54.12 Radiculopathy, cervical region; M62.830 Muscle spasm of back; J44.9 Chronic obstructive pulmonary disease, unspecified; I25.2 Old myocardial infarction; Z87.891 Personal history of nicotine dependence; Z88.8 Allergy status to other drugs, medicaments and biological substances; Z79.899 Other long term (current) drug therapy; Z79.01 Long term (current) use of anticoagulants; Z79.82 Long term (current) use of aspirin; Z79.02 Long term (current) use of antithrombotics/antiplatelets; X58.XXXA Exposure to other specified factors, initial encounter
CPT/HCPCS: 36415; 71046; 80053; 83880; 84484; 85025; 93005; 93010; 99284-25

== ENCOUNTER 2019-07-09 23:51 | Emergency (ER) | payer MEDICARE, OTHER ==
[~2019-07-09] VITALS: Ht 180.3 cm; Wt 76.2 kg
[2019-07-10 01:05] LABS: BASOPHILS ABSOLUTE AUTO 0.03 K/mm3 (0.00-0.23); BASOPHILS PERCENT AUTO 0 % (0-2); EOSINOPHILS ABSOLUTE AUTO 0.09 K/mm3 (0.00-0.68); EOSINOPHILS PERCENT AUTO 1 % (0-6); Hematocrit 39.5 % (37.0-53.0); Hemoglobin 12.8 g/dL (13.5-17.5); IMMATURE GRAN ABSOLUTE AUTO 0.04 K/mm3 (0.00-0.10); IMMATURE GRAN PERCENT AUTO 1 % (0-1); LYMPHOCYTES ABSOLUTE AUTO 1.22 K/mm3 (0.84-5.20); LYMPHOCYTES PERCENT AUTO 17 % (21-46); MONOCYTES ABSOLUTE AUTO 0.76 K/mm3 (0.16-1.47); MONOCYTES PERCENT AUTO 10 % (4-13); Mean Corpuscular HGB 30.2 pg (26.0-34.0); Mean Corpuscular HGB Conc 32.4 g/dL (31.5-36.5); Mean Corpuscular Volume 93 fL (80-100); Mean Platelet Volume 9.5 fL (9.1-12.4); NEUTROPHILS ABSOLUTE AUTO 5.14 K/mm3 (1.96-9.15); NEUTROPHILS PERCENT AUTO 71 % (41-73); Platelet Count 214 K/mm3 (150-400); RDW Coefficient Variation 14.8 % (11.7-14.2); RDW Standard Deviation 51.2 fL (35.1-46.3); Red Blood Cell Count 4.24 M/mm3 (4.30-5.90); White Blood Cell Count 7.28 K/mm3 (4.00-11.30)
[2019-07-10 01:22] LABS: Albumin, Blood 3.8 g/dL (3.4-5.0); Albumin/Globulin Ratio 1.2 (0.8-1.8); Bilirubin, Total 0.6 mg/dL (0.1-1.0); Calcium, Blood 8.8 mg/dL (8.5-10.1); Creatinine, Blood 1.35 mg/dL (0.60-1.20); Globulin, Blood 3.3 g/dL (2.2-4.0); Potassium, Blood 4.6 mmol/L (3.5-5.5); Total Protein, Blood 7.1 g/dL (6.4-8.2)
== END 2019-07-10 02:15 | disposition home or self-care (01) ==
LOC: ER 23:51
PROVIDERS: Emergency Medicine
DX: K40.90 Unilateral inguinal hernia, without obstruction or gangrene, not specified as recurrent (principal); J44.9 Chronic obstructive pulmonary disease, unspecified; Z91.013 Allergy to seafood; Z88.8 Allergy status to other drugs, medicaments and biological substances; Z79.82 Long term (current) use of aspirin; Z79.899 Other long term (current) drug therapy
CPT/HCPCS: 36415; 80053; 85025; 96374; 96375; 99283; J2060; J2405; J3010

== ENCOUNTER 2020-10-18 13:37 | Emergency (ER) | payer MEDICARE, OTHER ==
[~2020-10-18] VITALS: Ht 180.3 cm; Wt 77.1 kg
[2020-10-18] MEDS ORDERED: Lisinopril2.5 MG PO (13:42)
[2020-10-18] MEDS ORDERED: METO25ER PO (13:42)
[2020-10-18] MEDS ORDERED: METOPROLOL SUCC25 MG (13:42)
[2020-10-18] MEDS ORDERED: RABEPRAZOLE SOD20 MG PO (13:43)
[2020-10-18] MEDS ORDERED: WARF5 PO (13:43)
[2020-10-18] MEDS ORDERED: CLOP75 PO (13:44)
== END 2020-10-18 13:51 | disposition home or self-care (01) ==
LOC: ER 13:37
DX: H57.89 Other specified disorders of eye and adnexa (principal); Z79.899 Other long term (current) drug therapy
CPT/HCPCS: 99283

== ENCOUNTER 2023-04-08 12:01 | Day surgery (SDC) | payer MEDICARE, OTHER ==
[~2023-04-08] VITALS: Ht 180.3 cm; Wt 79.0 kg
[~2023-04-08 12:01] MED LIST changes: +Lisinopril2.5 MG PO; +METO25ER PO; +METOPROLOL SUCC25 MG; +RABEPRAZOLE SOD20 MG PO; +WARF5 PO
--- NOTE | 2023-04-08 12:49 | NUR ---
04/08/23 1249 Kasia Blackmon TETRACAINE TO LEFT EYE AT 1238 PLEDGET TO LEFT EYE AT 1240 BY [email or web address]
[2023-04-08 13:58] VITALS: BP 114/80
== END 2023-04-08 14:20 | disposition home or self-care (01) ==
LOC: ORSCSDS 12:01
PROVIDERS: Ophthalmology
PROC: 08RK3JZ Replacement of Left Lens with Synthetic Substitute, Percutaneous Approach (ICD-10-PCS; principal; 2023-04-08 13:30)
DX: H25.12 Age-related nuclear cataract, left eye (principal); Z96.1 Presence of intraocular lens; Z87.891 Personal history of nicotine dependence; I48.91 Unspecified atrial fibrillation; I25.10 Atherosclerotic heart disease of native coronary artery without angina pectoris; J44.9 Chronic obstructive pulmonary disease, unspecified; K21.9 Gastro-esophageal reflux disease without esophagitis; I10 Essential (primary) hypertension; R00.0 Tachycardia, unspecified; Z79.01 Long term (current) use of anticoagulants; Z79.899 Other long term (current) drug therapy
CPT/HCPCS: J2250; J3301; J7040; V2632

== ENCOUNTER 2023-11-04 06:34 | Day surgery (SDC) | payer MEDICARE, OTHER ==
[~2023-11-04] VITALS: Ht 180.3 cm; Wt 81.2 kg
[2023-11-04] VITALS (7 sets, daily range): BP systolic 97–124; BP diastolic 68–82
[~2023-11-04 06:34] MED LIST changes: +RED YEAST RICE; +VITAMIN D5000 UNIT PO
[2023-11-04] MEDS ORDERED: NS 1,000 ML IV ONE ×2 (06:53→07:38)
[2023-11-04] MEDS ORDERED: Heparin Sodium 1000 Units/ML 10ML MDV ONE ×2 (06:53→07:38)
[2023-11-04] MEDS ORDERED: NS 250 ML IV ONE (06:53)
[2023-11-04] MEDS ORDERED: NiCARdipine HCL 1,000 MCG/5 ML SYR ONE (06:54)
[2023-11-04] MEDS ORDERED: Nitroglycerin 2 MG/20 ML BTL ONE (06:54)
[2023-11-04] MEDS ORDERED: Aspirin 325 MG Tab ONE (07:23)
[2023-11-04] MEDS ORDERED: Midazolam HCl 1MG / ML 2ML Vial ONE (07:38)
[2023-11-04] MEDS ORDERED: FentaNYL Citrate 50 MCG/ML 2 ML Injection ONE (07:38)
== END 2023-11-04 10:50 | disposition home or self-care (01) ==
LOC: MHTC 06:34
DX: I25.118 Atherosclerotic heart disease of native coronary artery with other forms of angina pectoris (principal); T82.855A Stenosis of coronary artery stent, initial encounter; Y71.8 Miscellaneous cardiovascular devices associated with adverse incidents, not elsewhere classified; I11.0 Hypertensive heart disease with heart failure; I50.20 Unspecified systolic (congestive) heart failure; I44.7 Left bundle-branch block, unspecified; E78.5 Hyperlipidemia, unspecified; Z87.891 Personal history of nicotine dependence; Z88.8 Allergy status to other drugs, medicaments and biological substances; Z79.899 Other long term (current) drug therapy
CPT/HCPCS: 76937; 93454; 99152; 99153; A9270; C1769; C1887; C1894; J1644; J2250; J3010; J7030; J7050; Q9967